=== PATIENT | female | born 1960 | race Caucasian/White ===

== ENCOUNTER 2019-02-14 21:00 | Emergency (ER) | payer MEDICAID ==
[~2019-02-14] VITALS: Ht 167.6 cm; Wt 74.4 kg
--- NOTE | 2019-02-14 21:17 | NUR ---
PT BIB [facility] WITH A C/O ABD PAIN X 2 MONTHS AND CONSTIPATION X 7 DAYS. LAST BM WAS A WEEK AGO. PT WAS TRIAGED AND TAKEN TO ROOM #14.
--- NOTE | 2019-02-14 21:20 | NUR ---
PT REC'D WARM BLANKETS. PT'S FAMILY MEMBER IS AT THE BEDSIDE.
[2019-02-14] MEDS ORDERED: IV NS 0.9% 1,000 ML BAG IV ONE (22:00)
[2019-02-14] MEDS ORDERED: MORPHINE SULFATE INJ 2 MG/ML DISP.SYRIN IV ONE (22:00)
[2019-02-14] MEDS ORDERED: ONDANSETRON HCL/PF 4 MG/2 ML VIAL IVP ONE (22:00)
[2019-02-14] MEDS ORDERED: MORPHINE SULFATE INJ 4 MG/ML DISP.SYRIN ONE (22:03)
[2019-02-14] MEDS ORDERED: ONDANSETRON HCL/PF 4 MG/2 ML VIAL ONE (22:03)
[2019-02-14 22:13] LABS: BASOPHILS # (AUTO) 0.1 /CMM (0.0-0.2); BASOPHILS % (AUTO) 0.8 % (0.0-2.0); EOSINOPHILS % (AUTO) 1.1 % (0.0-6.0); HEMATOCRIT 38 % (33-45); LYMPHOCYTES # (AUTO) 1.5 /CMM (0.8-4.8); LYMPHOCYTES % (AUTO) 15.8 % (20.0-44.0); MEAN CORPUSCULAR HGB CONC 34 g/dl (31.0-36.0); MEAN CORPUSCULAR VOLUME 86 fL (82-100); MONOCYTES % (AUTO) 10.5 % (2.0-12.0); NEUTROPHILS % (AUTO) 71.8 % (43.0-81.0); PLATELET COUNT (AUTO) 375 /CMM (150-450); RED BLOOD CELL COUNT(AUTO) 4.47 MIL/uL (4.0-5.2); WHITE BLOOD COUNT (AUTO) 9.7 K/uL (4.3-11.0)
--- NOTE | 2019-02-14 22:13 | NUR ---
PT STATED THAT SHE WAS ALLERGIC TO IV CONTRAST.
--- NOTE | 2019-02-14 22:15 | NUR ---
PEDRO LUIS, GIFT CONSULTANT, NOTIFIED RE: PT'S CONTRAST ALLERGY.
--- NOTE | 2019-02-14 22:19 | NUR ---
PT REFUSED ZOFRAN. PER PT DOES NOT WORK FOR HER
--- NOTE | 2019-02-14 22:19 | NUR ---
Shefali de souza in ED - 02/14/19 at 2219 by BRENDAN PT BETH GALEAS. PT STATED "IT DOESN'T WORK ON ME".
[2019-02-14 22:20] LABS: CALCIUM, SERUM 9.3 mg/dL (8.5-10.1); CREATININE 0.9 mg/dL (0.6-1.3)
--- NOTE | 2019-02-14 22:24 | NUR ---
PT LEFT FOR CT VIA RNEY
[2019-02-14 22:26] LABS: ALBUMIN 3.5 g/dL (3.4-5.0); BILIRUBIN,DIRECT 0.1 mg/dL (0.0-0.2); BILIRUBIN,TOTAL 0.5 mg/dL (0.2-1.0); TOTAL PROTEIN, SERUM 7.7 g/dL (6.4-8.2)
--- NOTE | 2019-02-14 22:33 | NUR ---
PT RETURNED FROM CT.
[2019-02-14] MEDS ORDERED: oxyCODONE/APAP (5/325 MG) 1 UDTAB TABLET ONE (23:22)
[2019-02-14] MEDS ORDERED: oxyCODONE/APAP (5/325 MG) 1 UDTAB TABLET PO ONE (23:30)
--- NOTE | 2019-02-14 23:34 | NUR ---
IV removed. Catheter intact and site benign. Pressure and 4x4 applied to site. No bleeding noted. FPatient discharged to home in stable condition. Written and verbal after care instructions given. Patient verbalizes understanding of instruction AND RX. PT'S SON IS DRIVING PT HOME. COPY OF ALL LABS AND CT FINDINGS GIVEN TO THE PT. PT TO F/U WITH [facility] IN THE MORNING.
[2019-02-14 23:36] VITALS: BP 128/75
== END 2019-02-14 23:37 | disposition home or self-care (01) ==
LOC: ER 21:18
DX: C53.9 Malignant neoplasm of cervix uteri, unspecified (principal); Z90.89 Acquired absence of other organs
CPT/HCPCS: 74176; 80048; 80076; 83690; 85025; 85730; 96374; 99284; J2270; J7030; J2405

== ENCOUNTER 2019-05-26 17:20 | Inpatient (IN) | payer OTHER ==
[~2019-05-26] VITALS: Ht 167.6 cm; Wt 53.5 kg
[2019-05-26] MEDS ORDERED: MORPHINE SULFATE INJ 2 MG/ML DISP.SYRIN IV PRN (19:00)
[2019-05-26] MEDS ORDERED: MAG HYDROX/AL HYDROX/SIMETH 30 ML UDC PO PRN (19:00)
[2019-05-26] MEDS ORDERED: Z GUARD REMEDY 2 OZ OINT TP PRN (19:00)
[2019-05-26] MEDS ORDERED: ACETAMINOPHEN 325 MG TABLET PO PRN (19:00)
[2019-05-26] MEDS ORDERED: ZOLPIDEM TARTRATE 5 MG TABLET PO PRN (19:00)
[2019-05-26] MEDS ORDERED: MAGNESIUM HYDROXIDE 30 ML UDC PO PRN (19:00)
[2019-05-26 20:04] VITALS: BP 143/66
--- NOTE | 2019-05-26 20:10 | NUR ---
ADMISSION NOTES: RECEIVED REPORT FROM MOLLY SUAREZ. PT WAS BROUGHT TO THE UNIT VIA [facility], FROM [facility]. PT COMPLAINING OF UNABLE TO EAT FOR COUPLE OF DAYS, N/V MORE THAN 3DAYS, INTRACTABLE PAIN. PT STATED SHE DOESN'T HAVE ANY N/V AT THIS TIME, ONLY LOWER BACK PAIN AND ABDOMINAL PAIN, BUT REFUSING MORPHINE. ORIENTED PT TO UNIT POLICY AND HOURLY ROUNDING. USE OF CALL LIGHT SYSTEM. BED SIDE COMMODE AVAILABLE AT BED SIDE. PT REFUSING FOR HELP IN USING COMMODE, BED ALARM SECURED, AND EDUCATION PROVIDED TO PT. TELE MONITORING ON SINUS RHYTHM HR 90. IV ACCESS PATENT AND FLUSHING WELL, ON HL. VS TAKEN AND RECORDED. INVENTORY OF BELONGINGS COMPLETED BY JHON DUMONT. SAFETY PRECAUTIONS FOR FALL INITIATED, CALL LIGHT IN REACH, WILL CONTINUE TO MONITOR.
[2019-05-26 20:30] VITALS: BP 143/66
--- NOTE | 2019-05-26 20:30 | NUR ---
RN NOTES: SKIN ASSESSMENT PERFORMED, NO SKIN ISSUES NOTED, WITNESSED BY JHON DUMONT.PT ABLE TO TURN AND REPOSITION ON HER OWN. PT STATED SHE DOES NOT WANT ANYTHING BUT PAIN MEDS ONLY. PT REFUSING SCD, DESPITE PROVIDING EDUCATION TO PT, RISK AND BENEFITS EXPLAINED.
--- NOTE | 2019-05-26 20:45 | NUR ---
RN NOTES: SAW THE NOTES OF MD, PER MD BED REST, INFORMED PT THAT IN CASE SHE WILL USE BATHROOM , CALL FOR HELP, AND WE WILL PROVIDE BED WATSON FOR HER. PT REFUSED, STATED SHE'S NOT COMFORTABLE VOIDING WHILE IN BED, EDUCATION PROVIDED TO PT.
--- NOTE | 2019-05-26 21:00 | NUR ---
RN NOTES: ADMISSION INTERVIEW COMPLETED, INCLUDING PT'S HOME MEDS, PT UNABLE TO RECALL MOST OF THE DOSAGE/INFORMATION. CLAIMING SHE ALWAYS TAKE DILAUDID AND METHADONE. ALL HOME MED LIST ENCODE/INPUT IN THE COMPUTER. WILL MADE INVESTIGATIONS CHIEF MD AWARE.
--- NOTE | 2019-05-26 21:20 | NUR ---
rn notes: pt refusing ivfluid stated she received ivf in [facility]. pt insisted no ivf tonight. education provided to patient
--- NOTE | 2019-05-26 21:46 | NUR ---
prn morphine: pt c/o excruciating pain 10/10 on lower back and abdominal area, requesting for pain medication. she stated she couldn't wait for dilaudid so she would rather get the morphine now. an/sqq [id number] sonar system journeyman made aware of the situation, witness for medication and pt choice of pain meds. prn morphine 4mg ivp administered to pt at this time, will continue to monitor and reassess pt.
[2019-05-26 21:53] LABS: APPEARANCE,URINE Clear (CLEAR); BILIRUBIN,URINE Negative (NEGATIVE); BLOOD, URINE Negative Ery/uL (NEGATIVE); COLOR,URINE Yellow (YELLOW); KETONES,URINE Trace (NEGATIVE); LEUKOCYTE ESTERASE ,URINE Negative (NEGATIVE); NITRITE, URINE Negative (NEGATIVE); PH,URINE 7.5 (5.0-8.0); PROTEIN,URINE Negative (NEGATIVE); UGLUCOSE Negative (NEGATIVE)
[2019-05-26 22:12] LABS: BACTERIA,URINE Few /HPF (None Seen); RBC,URINE 0-2 /HPF (0-2); SQUAMOUS EPITHELIAL CELL,UR Few /HPF (None Seen); WBC,URINE 0-2 /HPF (0-3)
[2019-05-26] MEDS ORDERED: RIVA10TA PO (22:16)
[2019-05-26] MEDS ORDERED: POLY17PO4 PO (22:16)
[2019-05-26] MEDS ORDERED: VENL225T PO (22:16)
[2019-05-26] MEDS ORDERED: METH5TAB2 PO (22:16)
[2019-05-26] MEDS ORDERED: NALO4SPR NS (22:16)
[2019-05-26] MEDS ORDERED: PROC10TA13 PO (22:16)
[2019-05-26] MEDS ORDERED: MULT-213 PO (22:16)
[2019-05-26] MEDS ORDERED: GABA-536 PO (22:16)
[2019-05-26] MEDS ORDERED: METO-295 PO (22:16)
[2019-05-26] MEDS ORDERED: ONDA8TAB6 PO (22:16)
[2019-05-26] MEDS: IV NS 0.9% 1,000 ML IV PRN (22:43)
--- NOTE | 2019-05-26 22:44 | NUR ---
rn notes: pt requesting for dilaudid for her pain medication, contacted epic , per dr ortez, t/o dc morphine and switch to dilaudid 1 mg ivp prn q3hrs for severe pain. read back, verified and carried out.
--- NOTE | 2019-05-26 22:48 | NUR ---
RN NOTES: DR WEIR AWARE OF PT'S ADMISSION/ARRIVAL. NO ORDERS RECEIVED.
--- NOTE | 2019-05-26 23:00 | NUR ---
RN NOTES: DEAN MD CURRENTLY IN THE UNIT, MADE AWARE OF PT'S VTE SCORE, HAS ORDER FOR LOVENOX, BUT PENDING VERIFICATION, PT'S LAB SCHED TO BE DRAWN IN AM 05/27/19 AT 0500AM, PER MD THAT'S OKAY, WILL WAIT FOR AM LABS.
[2019-05-26] MEDS: HYDROMORPHONE 1 MG/1 ML DISP.SYRIN IV PRN (23:41)
--- NOTE | 2019-05-26 23:41 | NUR ---
prn dilaudid: pt c/o 06/08 lower back and abdominal pain requesting for medications, prn dilaudid 1mg ivp administered to pt at this time. will continue to monitor and reassess pt.
[2019-05-27] VITALS: BP 130/68
--- NOTE | 2019-05-27 01:37 | NUR ---
RN NOTES: HEARD BED ALARM, FOUND PT USING THE COMMODE, INFORMED PT TO CALL FOR HELP, PT REFUSED, AND STATED TO GO AWAY, DOES NOT NEED HELP IN USING COMMODE. EDUCATION PROVIDED TO PT, RISK FOR FALL.
--- NOTE | 2019-05-27 02:12 | NUR ---
RN NOTES: MRSA SWAB COLLECTED, SENT TO LAB
[2019-05-27] MEDS: HYDROMORPHONE 1 MG/1 ML DISP.SYRIN IV PRN ×5 (02:58→23:37)
--- NOTE | 2019-05-27 02:59 | NUR ---
prn dilaudid: pt c/o 06/08 generalized pain, prn dilaudid 1 mg ivp administered to pt at this time, will continue to monitor and reassess pt.
[2019-05-27] MEDS: IV NS 0.9% 1,000 ML IV PRN (03:08)
--- NOTE | 2019-05-27 03:13 | NUR ---
rn notes: pt finally agree for iv hydration
[2019-05-27 04:00] VITALS: BP 131/70
--- NOTE | 2019-05-27 06:18 | NUR ---
prn dilaudid: pt c/o 06/08 generalized pain, requesting for pain medication, prn dilaudid 1 mg ivp administered to pt at this time, will continue to monitor and reassess pt.
--- NOTE | 2019-05-27 06:51 | NUR ---
rn closing notes: pt in bed, awake, last pain meds administered at 0620am. iv access remains patent and flushing well, infusing with ns at 75ml/hr. no episode of n/v noted throughout the shift. remains on tele monitoring, sinus rhythm hr 70. remains to refused scd, despite educating regarding potential risk and benefits, prevention of blood clot. bed side commode available. awaiting to reconcile meds. vs remains stable, needs attended. safety precautions for fall remains engaged, call light in reach, will endorse to day rn for continuity of care.
--- NOTE | 2019-05-27 07:30 | NUR ---
WEATHER TEACHER NOTES PT IN BED, AWAKE, ALERT AND VERBALLY RESPONSIVE, NOT IN DISTRESS, NO COMPLAINT AT THIS TIME, IV FLUIDS INFUSING WELL, REMINDED PT TO CALL FOR ASSISTANCE, VERBALIZED UNDERSTANDING, KEPT WARM AND COMFORTABLE IN BED.
[2019-05-27 07:43] LABS: BASOPHILS % (AUTO) 0.6 % (0.0-2.0); HEMATOCRIT 29 % (33-45); HEMOGLOBIN 9.6 g/dL (11.5-14.8); LYMPHOCYTES # (AUTO) 0.9 /CMM (0.8-4.8); LYMPHOCYTES % (AUTO) 11.7 % (20.0-44.0); MEAN CORPUSCULAR HGB CONC 33 g/dl (31.0-36.0); MEAN CORPUSCULAR VOLUME 73 fL (82-100); MONOCYTES % (AUTO) 12.5 % (2.0-12.0); NEUTROPHILS # (AUTO) 5.9 /CMM (1.8-8.9); NEUTROPHILS % (AUTO) 74.2 % (43.0-81.0); PLATELET COUNT (AUTO) 513 /CMM (150-450); RED BLOOD CELL COUNT(AUTO) 4.02 MIL/uL (4.0-5.2)
[2019-05-27 07:56] LABS: CALCIUM, SERUM 8.9 mg/dL (8.5-10.1); CREATININE 0.7 mg/dL (0.6-1.3); MAGNESIUM 2.1 mg/dL (1.8-2.4); PHOSPHORUS 3.3 mg/dL (2.5-4.9); POTASSIUM 3.8 mmol/L (3.5-5.1)
[2019-05-27 08:00] VITALS: BP 133/66
[2019-05-27] MEDS ORDERED: PANTOPRAZOLE 40 MG VIAL IV SCH (09:00)
[2019-05-27] MEDS ORDERED: ENOXAPARIN SODIUM 30 MG/0.3 ML DISP.SYRIN SQ SCH (09:00)
[2019-05-27] MEDS ORDERED: ENOXAPARIN SODIUM 40 MG/0.4 ML DISP.SYRIN SQ SCH (09:00)
[2019-05-27] MEDS: HYDROCODONE/APAP 5/325MG 1 EACH TABLET PO PRN ×2 (11:47→22:34)
--- NOTE | 2019-05-27 12:16 | NUR ---
RN MS NOTES PT IN BED, RESTING, PAIN MEDS GIVEN FOR PAIN MANAGEMENT, CALL LIGHT WITHIN REACH, NOT IN DISTRESS, SEEN BY DR. WEIR, PLAN OF CARE DISCUSSED WITH PT, VERBALIZED UNDERSTANDING, PT'S IV SITE INFILTRATED, PT HARDSTICK, MIDLINE ORDER GIVEN BY DR. WEIR, PT INFORMED.
[2019-05-27 16:00] VITALS: BP 133/71
[2019-05-27] MEDS: ONDANSETRON HCL/PF 4 MG/2 ML VIAL IVP PRN (17:28)
--- NOTE | 2019-05-27 17:46 | NUR ---
RN MS NOTES PT SEEN AND EXAMINED BY DR. WEIR, PLAN OF CARE DISCUSSED WITH PT, VERBALIZED UNDERSTANDING, PAIN MEDS GIVEN ORDERED, ZOFRAN GIVEN ORDERED, NEEDS ATTENDED, IV FLUIDS INFUSING WELL, CALL LIGHT WITHIN REACH.
--- NOTE | 2019-05-27 18:16 | NUR ---
RN MS NOTES PT IN BED, AWAKE, ALERT AND ORIENTED, SITTING IN BED, EATING DINNER, ENCOURAGED INCREASED ORAL INTAKE, STATED THAT HER PAIN AND NAUSEA IS BETTER, CALL LIGHT WITHIN REACH, ALL NEEDS ATTENDED.
[2019-05-27] MEDS ORDERED: ALPRAZOLAM 0.25 MG TABLET PO PRN (18:30)
[2019-05-27] MEDS: RIVAROXABAN 10 MG TABLET PO SCH (18:54)
--- NOTE | 2019-05-27 19:15 | NUR ---
MS RN OPENING NOTES Patient received in bed with head of bed elevated. Breathing even and unlabored. Not in any distress. Offered to hook back patient to IV fluids but patient refused. Stated to do it later as she might go again to the commode. Encouraged to call for assistance. Safety measures in place; call light within reach, bed in low, locked position. Will continue to monitor accordingly
--- NOTE | 2019-05-27 19:40 | NUR ---
RN NOTES Midliner Ted came to put in a midline. Patient refused for now as she has a working IV line on the R) wrist.
[2019-05-27 20:00] VITALS: BP 126/68
--- NOTE | 2019-05-27 20:24 | NUR ---
RN NOTES PATIENT C/O PAIN IN ABDOMEN AND BACK, 06/08. V/S WNL. PRN DILAUDID 1MG GIVEN ORDERED. WILL CONTINUE TO MONITOR
--- NOTE | 2019-05-27 21:00 | NUR ---
RN NOTES Patient agreed to be hooked back to IV fluids
[2019-05-27] MEDS: VENLAFAXINE XR 37.5 MG CAP.SR.24H PO SCH (21:30)
[2019-05-27] MEDS: GABAPENTIN 400 MG CAPSULE PO SCH (21:30)
--- NOTE | 2019-05-27 21:30 | NUR ---
RN NOTES Patient refusing night medications: gabapentin and venflaxine. Explained the uses and benefits but still refusing. As per patient, "I don't need it right now. I don't want it."
--- NOTE | 2019-05-27 23:38 | NUR ---
RN NOTES Patient stated [employer] is not working. Still c/o 05/09 abdominal and back pain, requesting for dilaudid, prn dilaudid 1 mg IVP administered as ordered. Will continue to monitor
[2019-05-28] MEDS: HYDROMORPHONE 1 MG/1 ML DISP.SYRIN IV PRN ×7 (02:55→21:00)
--- NOTE | 2019-05-28 02:56 | NUR ---
RN NOTES Patient c/o 9/10 abdominal and lower back pain, requesting for pain medication, prn dilaudid 1 mg IVP administered as ordered. Will continue to monitor
[2019-05-28] MEDS: IV NS 0.9% 1,000 ML IV PRN (05:31)
--- NOTE | 2019-05-28 05:56 | NUR ---
RN NOTES Patient c/o 9/10 abdominal and lower back pain, requesting for pain medication, prn dilaudid 1 mg IVP administered as ordered. Will continue to monitor
--- NOTE | 2019-05-28 06:49 | NUR ---
MS RN CLOSING NOTES Patient resting in bed, alert, oriented x 3. Breathing even and unlabored. Not in any distress. Peripheral IV infusing at 75mL/hr. No complaints at this time. Safety measures in place, call light within reach, bed in lowest, locked position. Will endorse BETSEY to oncoming RN
--- NOTE | 2019-05-28 07:30 | NUR ---
RN MS NOTES PT IN BED, AWAKE, ALERT AND ORIENTED, WITH COMPLAINT OF GENERALIZED PAIN, RESPIRATIONS NORMAL, IV FLUIDS INFUSING WELL, CALL LIGHT WITHIN REACH, KEPT WARM AND COMFORTABLE, PAIN MEDS GIVEN FOR PAIN MANAGEMENT.
[2019-05-28 07:31] LABS: BASOPHILS % (AUTO) 0.3 % (0.0-2.0); HEMATOCRIT 31 % (33-45); LYMPHOCYTES % (AUTO) 10.3 % (20.0-44.0); MEAN CORPUSCULAR HGB CONC 32 g/dl (31.0-36.0); MEAN CORPUSCULAR VOLUME 74 fL (82-100); MONOCYTES # (AUTO) 0.9 /CMM (0.1-1.30); MONOCYTES % (AUTO) 9.6 % (2.0-12.0); NEUTROPHILS # (AUTO) 7.7 /CMM (1.8-8.9); NEUTROPHILS % (AUTO) 78.8 % (43.0-81.0); PLATELET COUNT (AUTO) 588 /CMM (150-450); RED BLOOD CELL COUNT(AUTO) 4.22 MIL/uL (4.0-5.2); WHITE BLOOD COUNT (AUTO) 9.8 K/uL (4.3-11.0)
[2019-05-28 07:40] LABS: THYROID STIMULATING HORMONE 3.81 uIU/mL (0.358-3.74)
[2019-05-28 07:45] LABS: CREATININE 0.7 mg/dL (0.6-1.3); MAGNESIUM 2.1 mg/dL (1.8-2.4); PHOSPHORUS 3.3 mg/dL (2.5-4.9); POTASSIUM 3.4 mmol/L (3.5-5.1)
[2019-05-28] MEDS: PANTOPRAZOLE 40 MG TABLET.DR PO SCH (07:52)
[2019-05-28] MEDS: ONDANSETRON HCL/PF 4 MG/2 ML VIAL IVP PRN ×2 (07:53→18:07)
[2019-05-28 08:00] VITALS: BP 115/64
[2019-05-28] MEDS: METHADONE HCL 10 MG TABLET PO SCH ×2 (09:00→13:22)
[2019-05-28] MEDS ORDERED: POTASSIUM CHLORIDE 20 MEQ TAB.PRT.SR PO SCH (10:00)
[2019-05-28] MEDS: HYDROCODONE/APAP 5/325MG 1 EACH TABLET PO PRN (10:30)
--- NOTE | 2019-05-28 12:50 | NUR ---
RN MS NOTES PT IN BED, RESTING, PAIN MEDICATION GIVEN FOR PAIN MANAGEMENT, SEEN AND EXAMINED BY DR. WEIR, PLAN OF CARE DISCUSSED WITH PT, VERBALIZED UNDERSTANDING, PT WITH EPISODES OF NON COMPLIANCE WITH MEDS, MD INFORMED.
[2019-05-28] MEDS: RIVAROXABAN 10 MG TABLET PO SCH (13:24)
[2019-05-28 13:39] LABS: APPEARANCE,URINE Slightly Cloudy (CLEAR); BILIRUBIN,URINE Negative (NEGATIVE); BLOOD, URINE Trace-intact Ery/uL (NEGATIVE); COLOR,URINE Yellow (YELLOW); KETONES,URINE Negative (NEGATIVE); LEUKOCYTE ESTERASE ,URINE Moderate (NEGATIVE); NITRITE, URINE Positive (NEGATIVE); PROTEIN,URINE Negative (NEGATIVE); UGLUCOSE Negative (NEGATIVE)
[2019-05-28 13:58] LABS: BACTERIA,URINE 3+ /HPF (None Seen); SQUAMOUS EPITHELIAL CELL,UR Few /HPF (None Seen)
--- NOTE | 2019-05-28 15:26 | NUR ---
RN MS NOTES PT STILL COMPLAINING OF GENERALIZED PAIN, PAIN MED NOT EFFECTIVE, DR. WEIR INFORMED, ORDERED TO INCREASE DILAUDID IVP TO 2 MG, NOTED AND CARRIED OUT, PT INFORMED, MD ALSO INFORMED OF PT'S LATEST URINALYSIS RESULT.
[2019-05-28 16:00] VITALS: BP 129/69
[2019-05-28] MEDS ORDERED: PHENAZOPYRIDINE HCL 200 MG TABLET PO PRN (16:00)
[2019-05-28] MEDS: CEFTRIAXONE 1 G in IV D5W 50 ML IV SCH (16:01)
[2019-05-28] MEDS: ENSURE CLEAR 237 ML LIQUID (MIX BERRY) PO SCH (18:12)
[2019-05-28 18:37] LABS: URINE SODIUM, RANDOM 69 mmol/l (40-220)
[2019-05-28 18:42] LABS: OSMOLALITY,URINE 478 mOS/kg (340-1090)
--- NOTE | 2019-05-28 18:50 | NUR ---
RN MS NOTES PT AWAKE, ALERT AND ORIENTED, SITTING IN HER CHAIR, PAIN MEDS GIVEN ORDERED, REASSESSED NEEDED, STATED THAT HER PAIN AND NAUSEA IS BETTER, NOT IN DISTRESS, ASSISTED WITH ADL'S, ENCOURAGED INCREASED ORAL INTAKE, CALL LIGHT WITHIN REACH, ALL NEEDS ATTENDED.
--- NOTE | 2019-05-28 19:30 | NUR ---
RECEIVED PATIENT IN BED AWAKE. AO X 3, ABLE TO MAKE NEEDS KNOWN. NO ACUTE DISTRESS NOTED. MONITORED FOR PAIN. IV SITE PATENT, INTACT; IVF INFUSING ORDERED. SAFETY REMINDERS GIVEN. ON LOW BED WITH BILATERAL UPPER SIDE RAILS UP. CALL [place]A WITHIN EASY REACH. WILL CONTINUE TO MONITOR.
[2019-05-28 20:00] VITALS: BP 117/67
[2019-05-28] MEDS: GABAPENTIN 400 MG CAPSULE PO SCH (22:00)
[2019-05-28] MEDS: VENLAFAXINE XR 37.5 MG CAP.SR.24H PO SCH (22:00)
--- NOTE | 2019-05-28 22:30 | NUR ---
EXPLAINED TO PATIENT THAT EFFEXOR AND NEURONTIN ARE ONLY SCHEDULED HS AND THAT SHE DID NOT RECEIVE THEM HIS MORNING. PATIENT WAS INFORMED WHICH MEDS SHE RECEIVED SO FAR TODAY. PATIENT STILL STRONGLY REFUSED EFFEXOR AND NEURONTIN, THINKING THAT SHE HAS BEEN GIVEN THE TWO MEDS IN THE MORNING. EFFEXOR AND NEURONTIN HELD. WILL CONTINUE TO MONITOR.
[2019-05-29] MEDS: HYDROMORPHONE 1 MG/1 ML DISP.SYRIN IV PRN ×7 (03:05→19:43)
[2019-05-29] MEDS: IV NS 0.9% 1,000 ML IV PRN ×2 (04:32→17:54)
--- NOTE | 2019-05-29 06:30 | NUR ---
PATIENT IN BED WITH EYES CLOSED. MONITORED FOR PAIN. IVF INFUSING ORDERED. NEEDS ATTENDED. SAFETY PRECAUTIONS AND COMFORT MEASURES IN PLACE. WILL GIVE REPORT TO DAY SHIFT FOR CONTINUITY OF CARE.
[2019-05-29] MEDS: PANTOPRAZOLE 40 MG TABLET.DR PO SCH (08:03)
[2019-05-29] MEDS: ONDANSETRON HCL/PF 4 MG/2 ML VIAL IVP PRN ×2 (08:03→18:17)
[2019-05-29 08:34] VITALS: BP 140/71
[2019-05-29 08:36] LABS: BASOPHILS % (AUTO) 0.4 % (0.0-2.0); EOSINOPHILS % (AUTO) 0.5 % (0.0-6.0); HEMATOCRIT 33 % (33-45); HEMOGLOBIN 10.7 g/dL (11.5-14.8); LYMPHOCYTES # (AUTO) 0.9 /CMM (0.8-4.8); MEAN CORPUSCULAR HGB CONC 32 g/dl (31.0-36.0); MEAN CORPUSCULAR VOLUME 74 fL (82-100); MONOCYTES # (AUTO) 0.9 /CMM (0.1-1.30); MONOCYTES % (AUTO) 9.2 % (2.0-12.0); NEUTROPHILS # (AUTO) 7.5 /CMM (1.8-8.9); NEUTROPHILS % (AUTO) 79.9 % (43.0-81.0); PLATELET COUNT (AUTO) 449 /CMM (150-450); RED BLOOD CELL COUNT(AUTO) 4.48 MIL/uL (4.0-5.2); WHITE BLOOD COUNT (AUTO) 9.4 K/uL (4.3-11.0)
[2019-05-29 08:39] LABS: CREATININE 0.6 mg/dL (0.6-1.3); POTASSIUM 3.9 mmol/L (3.5-5.1)
[2019-05-29 08:43] LABS: PHOSPHORUS 3.2 mg/dL (2.5-4.9)
[2019-05-29] MEDS: ENSURE CLEAR 237 ML LIQUID (MIX BERRY) PO SCH ×3 (09:00→17:00)
[2019-05-29] MEDS: METHADONE HCL 10 MG TABLET PO SCH ×2 (09:58→18:22)
[2019-05-29] MEDS: RIVAROXABAN 10 MG TABLET PO SCH (12:57)
[2019-05-29] MEDS: HYDROCODONE/APAP 5/325MG 1 EACH TABLET PO PRN (14:48)
[2019-05-29] MEDS: CEFTRIAXONE 1 G in IV D5W 50 ML IV SCH (16:04)
[2019-05-29 16:15] VITALS: BP 119/67
--- NOTE | 2019-05-29 19:01 | NUR ---
MS/RN NOTE THE PATIENT ALERT AND ORIENTED X3. COMPLAINS GENERALIZED BODY PAIN 4/10 BUT DOES NOT WANT PAIN MEDICATION AT THIS TIME. IN ROOM AIR AND SATURATION IS AT 98%. DENIES SOB. RESPIRATION REGULAR AND UNLABORED. RIGHT WRIST G 20 PATENT AND NS INFUSING AT 75ML/HR AND NO S/S INFILTRATION NOTED. BED LOW AND LOCKED. SIDE RAILS UP X3. CALL LIGHT WITHIN REACH. WILL ENDORSE TO [employer]MONS SERVER.
--- NOTE | 2019-05-29 19:25 | NUR ---
CHANGE OF SHIFT REPORT Patient in bed, A/O x4. Tolerating RA, denies SOB. IVF infusing. Abdomen feels tender, back pain, irritable with pain. Educate on pain scale and pain management, indication and possible side effect of Opiods medication, verbalized understanding. Denies nausea, no vomiting. Fall precaution maintained. Addendum: 05/30/19 at 0013 by TONY ROBERSON RN ERROR ENTERED ON 05/28/19 AT 1925 [employer]/Tele Nursing Flowsheet, PLEASE DISREGARD ASSESSMENT.
[2019-05-29 20:00] VITALS: BP 118/62
[2019-05-29] MEDS: VENLAFAXINE XR 37.5 MG CAP.SR.24H PO SCH (21:22)
[2019-05-29] MEDS: GABAPENTIN 400 MG CAPSULE PO SCH (21:22)
[2019-05-30] MEDS: HYDROMORPHONE 1 MG/1 ML DISP.SYRIN IV PRN ×6 (01:29→22:34)
[2019-05-30] MEDS: ONDANSETRON HCL/PF 4 MG/2 ML VIAL IVP PRN ×2 (05:20→18:05)
--- NOTE | 2019-05-30 06:27 | NUR ---
END OF SHIFT REPORT Patient in bed, stable oxygen saturation on RA. Feels weak and loss of appetite. PT to follow. Abdominal/lower back pain controlled with PRN Dilaudid. Methadone as schedule for pain management. IVF infusing, IV abx as scheduled, no fever. Nausea resolved with PRN Zofran. Hourly rounds, maintained safety.
[2019-05-30 08:00] VITALS: BP 109/62
[2019-05-30] MEDS: ENSURE CLEAR 237 ML LIQUID (MIX BERRY) PO SCH ×3 (09:00→16:22)
[2019-05-30] MEDS: PANTOPRAZOLE 40 MG TABLET.DR PO SCH (09:14)
[2019-05-30] MEDS: METHADONE HCL 10 MG TABLET PO SCH ×2 (10:03→16:22)
[2019-05-30] MEDS: oxyCODONE IR immediate release 5 MG PO PRN ×2 (12:07→20:18)
[2019-05-30] MEDS: IV NS 0.9% 1,000 ML IV PRN (12:12)
[2019-05-30] MEDS: RIVAROXABAN 10 MG TABLET PO SCH (12:33)
[2019-05-30 15:57] VITALS: BP 111/56
[2019-05-30] MEDS: CEFTRIAXONE 1 G in IV D5W 50 ML IV SCH (16:13)
--- NOTE | 2019-05-30 18:52 | NUR ---
MS/RN NOTE THE PATIENT ALERT AND ORIENTED X4. IN ROOM AIR AND SATURATION IS AT 97%. DENIES SOB. COMPLAINS OF ABDOMINAL PAIN 3/10 AND DOES NOT WANT PAIN MEDICATION AT THIS TIME. RIGHT WRIST G 20 PATENT AND NS INFUSING AT 75ML/HR AND NO S/S INFILTRATION. BED LOW AND LOCKED. SIDE RAILS UP X3. CALL LIGHT WITHIN REACH. WILL ENDORSE TO CODING AUDITOR.
--- NOTE | 2019-05-30 19:30 | NUR ---
MS/RN NOTES RECEIVED PT. LYING IN BED RESTING. PT. IS EASILY AROUSABLE TO NAME. AWAKE, ALERT AND ORIENTED X4. BREATHING EVEN AND UNLABORED ON ROOM AIR. NO SOB, RESPIRATORY DISTRESS OR COMPLAINTS OF PAIN NOTED AT THIS TIME. PT. WITH RIGHT WRIST 20 GAUGE PERIPHERAL IV PRESENT, PATENT AND INTACT ADMINISTERING TO PT. NS @ 75 ML/HR. BED LOCKED AND IN LOWEST POSITION, SIDE RAILS UP X2, CALL LIGHT WITHIN REACH, WILL CONTINUE TO MONITOR.
[2019-05-30 20:00] VITALS: BP 115/72
[2019-05-30] MEDS: GABAPENTIN 400 MG CAPSULE PO SCH (22:34)
[2019-05-30] MEDS: VENLAFAXINE XR 37.5 MG CAP.SR.24H PO SCH (22:34)
[2019-05-31] MEDS: HYDROMORPHONE 1 MG/1 ML DISP.SYRIN IV PRN ×8 (02:04→23:07)
--- NOTE | 2019-05-31 02:04 | NUR ---
MS/RN NOTES WHEN TRYING TO GIVE PT. PAIN MEDICINE IV NOTED TO BE INFILTRATED WHEN FLUSHED WITH NS. MEDICATION NOT ADMINISTERED TO PATIENT AT THIS TIME, TRIED TO INSERT NEW IV ACCESS AND WAS UNABLE. WILL CALL FOR ER NURSE TO ATTEMPT IV INSERTION. WILL CONTINUE TO MONITOR.
[2019-05-31] MEDS: oxyCODONE IR immediate release 5 MG PO PRN ×5 (03:06→22:10)
--- NOTE | 2019-05-31 03:06 | NUR ---
MS/RN NOTES ER NURSE PRESENT AT BEDSIDE ATTEMPTING TO INSERT NEW IV ACCESS. PT. REQUESTED PRN OXY IR 5MG. ADMINISTERED PAIN MEDICATION TO PT. ORDERED. WILL CONTINUE TO MONITOR.
--- NOTE | 2019-05-31 03:35 | NUR ---
MS/RN NOTES ER NURSE ATTEMPTED TO INSERT NEW IV ACCESS AND WAS UNABLE. ER NURSE STATED THEY WOULD SEND ANOTHER ER NURSE TO ATTEMPT TO INSERT NEW IV ACCESS. WILL CONTINUE TO MONITOR.
--- NOTE | 2019-05-31 04:10 | NUR ---
MS/RN NOTES ER UNABLE TO SEND SOMEONE UP AT THIS TIME, PT. COMPLAINING OF SEVERE ABDOMINAL AND BACK PAIN. ADMINISTERED TO PT. PRN OXY IR 10MG ORDERED. WILL CALL ICU TO SEND NURSE TO ATTEMPT IV INSERTION. WILL CONTINUE TO MONITOR.
--- NOTE | 2019-05-31 04:59 | NUR ---
MS/RN NOTES ICU NURSE INSERTED NEW IV ACCESS LEFT HAND 20 GAUGE. PT. COMPLAINING OF SEVERE ABDOMINAL AND BACK PAIN NOT RELIEVED BY ORAL PAIN MEDICATION. ADMINISTERED TO PT. PRN DILAUDID 2MG. PT. CURRENT BP 120/69 HR 92. WILL CONTINUE TO MONITOR.
--- NOTE | 2019-05-31 06:19 | NUR ---
MS/RN NOTES PT. IS LYING IN BED RESTING. BREATHING EVEN AND UNLABORED ON ROOM AIR. NO SOB, RESPIRATORY DISTRESS OR COMPLAINTS OF PAIN NOTED AT THIS TIME. PT. WITH LEFT HAND 20 GAUGE PERIPHERAL IV PRESENT, PATENT AND INTACT ADMINISTERING TO PT. NS @ 75 ML/HR. ALL PT. NEEDS MET. BED LOCKED AND IN LOWEST POSITION, SIDE RAILS UP X2, CALL LIGHT WITHIN REACH, WILL ENDORSE TO DAYSHIFT NURSE FOR CONTINUITY OF CARE.
[2019-05-31] MEDS: ONDANSETRON HCL/PF 4 MG/2 ML VIAL IVP PRN ×3 (06:53→18:53)
[2019-05-31 07:06] LABS: BASOPHILS % (AUTO) 0.4 % (0.0-2.0); EOSINOPHILS % (AUTO) 0.8 % (0.0-6.0); HEMATOCRIT 29 % (33-45); HEMOGLOBIN 9.2 g/dL (11.5-14.8); LYMPHOCYTES # (AUTO) 0.9 /CMM (0.8-4.8); LYMPHOCYTES % (AUTO) 9.9 % (20.0-44.0); MEAN CORPUSCULAR HGB CONC 32 g/dl (31.0-36.0); MEAN CORPUSCULAR VOLUME 73 fL (82-100); MONOCYTES % (AUTO) 11.7 % (2.0-12.0); NEUTROPHILS # (AUTO) 6.6 /CMM (1.8-8.9); NEUTROPHILS % (AUTO) 77.2 % (43.0-81.0); PLATELET COUNT (AUTO) 516 /CMM (150-450); RED BLOOD CELL COUNT(AUTO) 3.91 MIL/uL (4.0-5.2); WHITE BLOOD COUNT (AUTO) 8.6 K/uL (4.3-11.0)
[2019-05-31 07:35] LABS: CALCIUM, SERUM 8.7 mg/dL (8.5-10.1); CREATININE 0.6 mg/dL (0.6-1.3); MAGNESIUM 1.9 mg/dL (1.8-2.4); POTASSIUM 3.6 mmol/L (3.5-5.1)
--- NOTE | 2019-05-31 07:45 | NUR ---
MS RN OPENING NOTES RECEIVED PT LAYING IN BED WITH HOB SLIGHTLY ELEVATED. PT IS A/O X4, AFEBRILE. RESPIRATIONS ARE EVEN AND UNLABORED, NOT IN ANY ACUTE DISTRESS NOTED. PT C/O GENERALIZED PAIN 04/08, WILL MEDICATE ACCORDINGLY. DENIES ANY SOB, N/V AT THIS TIME. SAFETY MEASURES ARE IN PLACE. INSTRUCTED PT TO USE CALL LIGHT WHEN ASSISTANCE IS NEEDED, CALL LIGHT IS LEFT WITHIN REACH. WILL MONITOR THROUGHOUT SHIFT FOR CONTINUITY OF CARE.
[2019-05-31 08:00] VITALS: BP_SYST 114; BP_SYST 133; BP_DIAS 60; BP_DIAS 79
[2019-05-31] MEDS: PANTOPRAZOLE 40 MG TABLET.DR PO SCH (08:08)
[2019-05-31] MEDS: METHADONE HCL 10 MG TABLET PO SCH ×2 (08:09→17:42)
[2019-05-31] MEDS: ENSURE CLEAR 237 ML LIQUID (MIX BERRY) PO SCH ×3 (08:22→17:20)
[2019-05-31] MEDS ORDERED: NA PHOS,M-B/NA PHOS,DI-BA 1 EA ENEMA RC PRN (13:00)
[2019-05-31] MEDS ORDERED: POLYETHYLENE GLYCOL 3350 17 GM POWD.PACK PO PRN (13:00)
[2019-05-31] MEDS: RIVAROXABAN 10 MG TABLET PO SCH (13:05)
--- NOTE | 2019-05-31 13:53 | NUR ---
MS RN NOTES-- CALLED PHARMACY, SPOKE W/ RHONDA RE: AYDIN. PER PHARMACY, WILL BRING IT UP.
[2019-05-31 16:00] VITALS: BP 118/61
[2019-05-31] MEDS: IV NS 0.9% 1,000 ML IV PRN (16:07)
[2019-05-31] MEDS: CEFTRIAXONE 1 G in IV D5W 50 ML IV SCH (16:32)
[2019-05-31] MEDS: SOD FERRIC GLUC 125 MG in IV NS 0.9% 100 ML IV SCH (16:53)
--- NOTE | 2019-05-31 17:01 | NUR ---
MS RN NOTES-- MIDLINE INSERTED TO GINGER G18. PT TOLERATED WELL. DRESSING KEPT CLEAN AND DRY. OLD PERIPHERAL IV REMOVED AND APPLIED PRESSURE. WILL CONTINUE TO MONITOR.
--- NOTE | 2019-05-31 18:21 | NUR ---
MS RN CLOSING NOTES ALL DUE MEDS GIVEN, NEEDS MET AND RENDERED. PT IS A/O X4, AFEBRILE. RESPIRATIONS ARE EVEN AND UNLABORED, NOT IN ANY ACUTE DISTRESS NOTED. PT C/O OF CHRONIC PAIN AND HAS BEEN MEDICATED ACCORDINGLY ORDERED. DENIES ANY SOB, N/V AT THIS TIME. MIDLINE TO GINGER INTACT, NO INFILTRATION NOTED. DRESSING KEPT CLEAN AND DRY. SAFETY MEASURES ARE IN PLACE. REMINDED PT TO USE CALL LIGHT WHEN ASSISTANCE IS NEEDED, CALL LIGHT IS LEFT WITHIN REACH.
[2019-05-31 20:00] VITALS: BP 116/65
[2019-05-31] MEDS: VENLAFAXINE XR 37.5 MG CAP.SR.24H PO SCH (21:45)
[2019-05-31] MEDS: GABAPENTIN 400 MG CAPSULE PO SCH (21:45)
--- NOTE | 2019-06-01 | NUR ---
PATIENT ASLEEP, RESPIRATIONS EVEN. WILL CONTINUE TO MONITOR.
[2019-06-01] MEDS: HYDROMORPHONE 1 MG/1 ML DISP.SYRIN IV PRN ×8 (02:03→22:59)
--- NOTE | 2019-06-01 06:00 | NUR ---
PATIENT AWAKE. RESPIRATIONS EVEN. MONITORED FOR PAIN. DUE MEDS GIVEN WITH NO ASE NOTED. IVF INFUSING ORDERED. NEEDS ATTENDED. MUCH REASSURANCE GIVEN TO MAKE PATIENT FEEL MORE SECURE. SAFETY PRECAUTIONS AND COMFORT MEASURES IN PLACE. WILL GIVE REPORT TO DAY SHIFT FOR CONTINUITY OF CARE.
[2019-06-01 07:23] LABS: BASOPHILS % (AUTO) 0.4 % (0.0-2.0); EOSINOPHILS % (AUTO) 0.9 % (0.0-6.0); HEMATOCRIT 29 % (33-45); HEMOGLOBIN 9.3 g/dL (11.5-14.8); LYMPHOCYTES # (AUTO) 1.1 /CMM (0.8-4.8); MEAN CORPUSCULAR HGB CONC 32 g/dl (31.0-36.0); MEAN CORPUSCULAR VOLUME 72 fL (82-100); MONOCYTES # (AUTO) 1.2 /CMM (0.1-1.30); MONOCYTES % (AUTO) 12.6 % (2.0-12.0); NEUTROPHILS # (AUTO) 7.4 /CMM (1.8-8.9); NEUTROPHILS % (AUTO) 75.1 % (43.0-81.0); PLATELET COUNT (AUTO) 569 /CMM (150-450); RED BLOOD CELL COUNT(AUTO) 4.05 MIL/uL (4.0-5.2); WHITE BLOOD COUNT (AUTO) 9.8 K/uL (4.3-11.0)
[2019-06-01 07:37] LABS: CALCIUM, SERUM 8.5 mg/dL (8.5-10.1); CREATININE 0.6 mg/dL (0.6-1.3); MAGNESIUM 1.8 mg/dL (1.8-2.4); POTASSIUM 3.4 mmol/L (3.5-5.1)
--- NOTE | 2019-06-01 07:39 | NUR ---
MS RN OPENING NOTES RECEIVED PT LAYING IN BED WITH HOB SLIGHTLY ELEVATED. PT IS A/O X4, AFEBRILE. RESPIRATIONS ARE EVEN AND UNLABORED, NOT IN ANY ACUTE DISTRESS NOTED. PT C/O GENERALIZED PAIN 8/10, WILL MEDICATE ACCORDINGLY. DENIES ANY SOB, NOTED W/ N/V AND WILL GIVE ANTIEMETIC ORDERED. MIDLINE TO GINGER INTACT, NO INFILTRATION NOTED. DRESSING KEPT CLEAN AND DRY. SAFETY MEASURES ARE IN PLACE. INSTRUCTED PT TO USE CALL LIGHT WHEN ASSISTANCE IS NEEDED, CALL LIGHT IS LEFT WITHIN REACH. WILL MONITOR THROUGHOUT SHIFT FOR CONTINUITY OF CARE.
[2019-06-01 08:00] VITALS: BP 114/61
[2019-06-01] MEDS: PANTOPRAZOLE 40 MG TABLET.DR PO SCH (08:01)
[2019-06-01] MEDS: ONDANSETRON HCL/PF 4 MG/2 ML VIAL IVP PRN ×3 (08:01→20:07)
[2019-06-01] MEDS: ENSURE CLEAR 237 ML LIQUID (MIX BERRY) PO SCH ×3 (08:01→16:28)
[2019-06-01] MEDS: IV NS 0.9% 1,000 ML IV PRN ×2 (08:01→22:59)
[2019-06-01] MEDS: METHADONE HCL 10 MG TABLET PO SCH ×2 (08:02→16:28)
[2019-06-01] MEDS ORDERED: POTASSIUM CHLORIDE 20 MEQ TAB.PRT.SR PO SCH (10:00)
--- NOTE | 2019-06-01 10:30 | NUR ---
MS RN NOTES-- PT WAS SEEN AND EXAMINED BY JESSE CANAS.
[2019-06-01] MEDS: RIVAROXABAN 10 MG TABLET PO SCH (12:32)
--- NOTE | 2019-06-01 14:41 | NUR ---
MS RN NOTES-- PT ABLE TO MAKE NEEDS KNOWN. NEEDS MET AND RENDERED. PT DOES NOT APPEAR TO BE IN ANY APPARENT DISTRESS NOTED. WILL CONTINUE TO MONITOR.
[2019-06-01] MEDS: CEFTRIAXONE 1 G in IV D5W 50 ML IV SCH (15:00)
[2019-06-01 16:00] VITALS: BP 114/56
[2019-06-01] MEDS: SOD FERRIC GLUC 125 MG in IV NS 0.9% 100 ML IV SCH (16:25)
[2019-06-01 20:00] VITALS: BP 132/60
[2019-06-01] MEDS: VENLAFAXINE XR 37.5 MG CAP.SR.24H PO SCH (21:49)
[2019-06-01] MEDS: GABAPENTIN 400 MG CAPSULE PO SCH (21:49)
[2019-06-02] MEDS: ONDANSETRON HCL/PF 4 MG/2 ML VIAL IVP PRN ×3 (02:02→16:02)
[2019-06-02] MEDS: HYDROMORPHONE 1 MG/1 ML DISP.SYRIN IV PRN ×7 (02:02→21:12)
[2019-06-02 06:26] LABS: BASOPHILS % (AUTO) 0.4 % (0.0-2.0); EOSINOPHILS % (AUTO) 0.9 % (0.0-6.0); HEMATOCRIT 27 % (33-45); HEMOGLOBIN 8.8 g/dL (11.5-14.8); LYMPHOCYTES % (AUTO) 9.9 % (20.0-44.0); MEAN CORPUSCULAR HGB CONC 33 g/dl (31.0-36.0); MEAN CORPUSCULAR VOLUME 72 fL (82-100); MONOCYTES # (AUTO) 1.1 /CMM (0.1-1.30); MONOCYTES % (AUTO) 10.9 % (2.0-12.0); NEUTROPHILS # (AUTO) 7.6 /CMM (1.8-8.9); NEUTROPHILS % (AUTO) 77.9 % (43.0-81.0); PLATELET COUNT (AUTO) 533 /CMM (150-450); RED BLOOD CELL COUNT(AUTO) 3.71 MIL/uL (4.0-5.2); WHITE BLOOD COUNT (AUTO) 9.7 K/uL (4.3-11.0)
[2019-06-02 07:01] LABS: CALCIUM, SERUM 8.6 mg/dL (8.5-10.1); CREATININE 0.6 mg/dL (0.6-1.3); MAGNESIUM 1.9 mg/dL (1.8-2.4); PHOSPHORUS 3.5 mg/dL (2.5-4.9); POTASSIUM 3.2 mmol/L (3.5-5.1)
--- NOTE | 2019-06-02 07:26 | NUR ---
MS RN OPENING NOTES RECEIVED PT LAYING IN BED WITH HOB SLIGHTLY ELEVATED. PT IS A/O X4, AFEBRILE. RESPIRATIONS ARE EVEN AND UNLABORED, NOT IN ANY ACUTE DISTRESS NOTED. PT C/O GENERALIZED PAIN 03/08, WILL MEDICATE ACCORDINGLY. DENIES ANY SOB, N/V AT THIS TIME. MIDLINE TO GINGER INTACT, NO INFILTRATION NOTED. DRESSING KEPT CLEAN AND DRY. SAFETY MEASURES ARE IN PLACE. INSTRUCTED PT TO USE CALL LIGHT WHEN ASSISTANCE IS NEEDED, CALL LIGHT IS LEFT WITHIN REACH. WILL MONITOR THROUGHOUT SHIFT FOR CONTINUITY OF CARE.
[2019-06-02 08:00] VITALS: BP 125/66
[2019-06-02] MEDS: PANTOPRAZOLE 40 MG TABLET.DR PO SCH (08:21)
[2019-06-02] MEDS: METHADONE HCL 10 MG TABLET PO SCH ×2 (08:22→16:02)
[2019-06-02] MEDS: ENSURE CLEAR 237 ML LIQUID (MIX BERRY) PO SCH ×3 (08:22→16:02)
[2019-06-02] MEDS: POTASSIUM CHLORIDE 20 MEQ TAB.PRT.SR PO SCH ×2 (09:41→10:34)
[2019-06-02] MEDS: IV NS 0.9% 1,000 ML IV PRN ×2 (09:41→21:12)
--- NOTE | 2019-06-02 10:30 | NUR ---
MS RN NOTES-- PT WAS SEEN AND EXAMINED BY JESSE CANAS W/ ORDERS FOR DISCHARGE TODAY BUT ONLY AFTER IF CM COORDINATES CHEMO SCHEDULE PRIOR TO BEING DISCHARGE.
[2019-06-02] MEDS ORDERED: NA P133E RC (10:35)
[2019-06-02] MEDS ORDERED: SOD62.5V IV (10:35)
[2019-06-02] MEDS ORDERED: OXYC5CAP18 PO (10:35)
[2019-06-02] MEDS ORDERED: METH10TA2 PO (10:35)
[2019-06-02] MEDS ORDERED: MAGN400O6 PO (10:35)
[2019-06-02] MEDS ORDERED: ZOLP5TAB2 PO (10:35)
[2019-06-02] MEDS ORDERED: PANT40TA2 PO (10:35)
[2019-06-02] MEDS ORDERED: ONDA4VIA23 IVP (10:35)
[2019-06-02] MEDS ORDERED: POLY17PO4 PO (10:35)
[2019-06-02] MEDS ORDERED: Lactose-Free Food PO (10:35)
[2019-06-02] MEDS ORDERED: POTA20TA83 PO (10:35)
[2019-06-02] MEDS ORDERED: ALPR0.255 PO (10:35)
[2019-06-02] MEDS ORDERED: MAG30ORA PO (10:35)
[2019-06-02] MEDS ORDERED: HYDR1DIS2 IV (10:35)
--- NOTE | 2019-06-02 12:47 | NUR ---
MS RN NOTES-- PT ABLE TO MAKE NEEDS KNOWN, NEEDS MET AND RENDERED. PT DOES NOT APPEAR TO BE IN ANY APPARENT DISTRESS. WILL CONTINUE TO MONITOR.
[2019-06-02] MEDS: RIVAROXABAN 10 MG TABLET PO SCH (13:23)
[2019-06-02] MEDS: SOD FERRIC GLUC 125 MG in IV NS 0.9% 100 ML IV SCH (13:53)
--- NOTE | 2019-06-02 15:42 | NUR ---
MS RN NOTES-- CALLED [facility] RE: DISCHARGE. THEY ARE WORKING ON GETTING ONCOLOGY AND CHEMO APPTS.
[2019-06-02 15:59] VITALS: BP 117/65
--- NOTE | 2019-06-02 17:00 | NUR ---
MS RN NOTES-- RECEIVED A CALL FROM ERICA STATING PT WILL BE P/U BY AMBULANCE AT 1800. PER ERICA, [facility] WILL MAKE ONCOLOGY APPT. NOTIFIED JESSE CANAS. PER DYLAN CANAS D/C. NOTIFIED ERICA TO SPEAK WITH JESSE CANAS.
[2019-06-02] MEDS: CEFTRIAXONE 1 G in IV D5W 50 ML IV SCH (17:35)
--- NOTE | 2019-06-02 19:37 | NUR ---
MS RN RECEIVE PT IN BED AWAKE A/O X 3, RESPIRATION EVEN AND UNLABORED, STABLE, NO S/S OF DISTRESS. SAFETY MEASURES IN PLACE. WILL CONT TO MTR
[2019-06-02] MEDS: oxyCODONE IR immediate release 5 MG PO PRN (19:53)
[2019-06-02 20:00] VITALS: BP 124/68
[2019-06-02] MEDS: VENLAFAXINE XR 37.5 MG CAP.SR.24H PO SCH (21:12)
[2019-06-02] MEDS: GABAPENTIN 400 MG CAPSULE PO SCH (21:12)
[2019-06-03] MEDS: HYDROMORPHONE 1 MG/1 ML DISP.SYRIN IV PRN ×6 (00:12→15:01)
[2019-06-03] MEDS: ONDANSETRON HCL/PF 4 MG/2 ML VIAL IVP PRN ×2 (00:12→06:15)
--- NOTE | 2019-06-03 06:18 | NUR ---
MS RN ASLEEP AND EASILY AWAKEN, RESPIRATION EVEN AND UNLABORED. PAIN WELL MONITORED. MEDICATED WITH PRN MED (DILAUDID) PER PT REQUEST WITH RELIEF. KEPT CLEAN AND DRY, COMFORTABLE. NEEDS ATTENDED AND ANTICIPATED. WILL ENDORSE TO THE NEXT SHIF
[2019-06-03 06:44] LABS: CALCIUM, SERUM 8.7 mg/dL (8.5-10.1); CREATININE 0.6 mg/dL (0.6-1.3)
--- NOTE | 2019-06-03 07:31 | NUR ---
RN MS OPENING NOTES Patient remains on room air, no sob noted, patient remains a/o x3 at this time. GINGER midline #18 NS @ 100 mL per hour. Patient states that pain is under control at this time. NO N/V. Bed at the lowest setting, call light within reach, side rails up x2.
[2019-06-03] MEDS: PANTOPRAZOLE 40 MG TABLET.DR PO SCH (07:43)
[2019-06-03] MEDS: ENSURE CLEAR 237 ML LIQUID (MIX BERRY) PO SCH ×2 (07:46→13:25)
[2019-06-03 08:00] VITALS: BP 109/69
[2019-06-03] MEDS: IV NS 0.9% 1,000 ML IV PRN (08:57)
[2019-06-03] MEDS: METHADONE HCL 10 MG TABLET PO SCH (10:04)
[2019-06-03] MEDS: RIVAROXABAN 10 MG TABLET PO SCH (13:23)
[2019-06-03] MEDS: SOD FERRIC GLUC 125 MG in IV NS 0.9% 100 ML IV SCH (14:00)
--- NOTE | 2019-06-03 16:33 | NUR ---
RN MS discharge notes Patient discharged at this time, patient remains with [facility] midline a this time. Patient signed all paper work signed and understood, patient has no further questions from her discharge orders. Patient's vital signs stable and denies pain at this time. Patient discharged to [facility]. Patient has all her belongings.
== END 2019-06-03 18:41 | DRG 530 ==
LOC: MED 19:56 → TELE 20:20 → MED 05-27 08:34
PROVIDERS: ADMIT Student in an Organized Health Care Education/Training Program; ATTEND Registered Nurse
DX: C53.9 Malignant neoplasm of cervix uteri, unspecified (principal); C79.51 Secondary malignant neoplasm of bone; C79.82 Secondary malignant neoplasm of genital organs; I82.409 Acute embolism and thrombosis of unspecified deep veins of unspecified lower extremity; E22.2 Syndrome of inappropriate secretion of antidiuretic hormone; E44.0 Moderate protein-calorie malnutrition; M84.48XA Pathological fracture, other site, initial encounter for fracture; D68.59 Other primary thrombophilia; F11.20 Opioid dependence, uncomplicated; Z90.710 Acquired absence of both cervix and uterus; Z79.899 Other long term (current) drug therapy; D47.3 Essential (hemorrhagic) thrombocythemia; N13.30 Unspecified hydronephrosis; G89.4 Chronic pain syndrome; D50.9 Iron deficiency anemia, unspecified; G89.3 Neoplasm related pain (acute) (chronic); N26.1 Atrophy of kidney (terminal); N39.0 Urinary tract infection, site not specified; B96.89 Other specified bacterial agents as the cause of diseases classified elsewhere; K21.9 Gastro-esophageal reflux disease without esophagitis; K22.4 Dyskinesia of esophagus
CPT/HCPCS: 36415; 36569; 71250-TC; 80048-TC; 81000-TC; 82533; 82728-TC; 83540-TC; 83735-TC; 83935-TC; 84100-TC; 84300-TC; 84443-TC; 85025-TC; 87081-TC; 87086-TC; 87186-TC; 97530-TC; C9113; G0378; J0696; J1170; J1650; J2270; J2405; J2916; J7030; J7060

== ENCOUNTER 2019-07-13 10:33 | Inpatient (IN) | payer OTHER ==
[~2019-07-13] VITALS: Ht 165.1 cm; Wt 49.4 kg
[~2019-07-13 10:33] MED LIST: ALPR0.255 PO; GABA-536 PO; HYDR1DIS2 IV; Lactose-Free Food PO; MAG30ORA PO; MAGN400O6 PO; METH10TA2 PO; METH5TAB2 PO; METO-295 PO; MULT-213 PO; NA P133E RC; NALO4SPR NS; ONDA4VIA23 IVP; ONDA8TAB6 PO; OXYC5CAP18 PO; PANT40TA2 PO; POLY17PO4 PO; POTA20TA83 PO; PROC10TA13 PO; RIVA10TA PO; SOD62.5V IV; VENL225T PO; ZOLP5TAB2 PO
[2019-07-13] MEDS ORDERED: ONDANSETRON HCL/PF 4 MG/2 ML VIAL IVP ONE (11:00)
[2019-07-13] MEDS ORDERED: MORPHINE SULFATE INJ 2 MG/ML DISP.SYRIN IV ONE (11:00)
[2019-07-13] MEDS ORDERED: IV NS 0.9% 1,000 ML BAG IV ONE (11:00)
[2019-07-13] MEDS ORDERED: ONDANSETRON HCL/PF 4 MG/2 ML VIAL ONE (11:04)
[2019-07-13 11:12] LABS: BASOPHILS # (AUTO) 0.2 /CMM (0.0-0.2); BASOPHILS % (AUTO) 1.3 % (0.0-2.0); EOSINOPHILS % (AUTO) 0.7 % (0.0-6.0); HEMATOCRIT 38 % (33-45); HEMOGLOBIN 11.8 g/dL (11.5-14.8); LYMPHOCYTES # (AUTO) 1.2 /CMM (0.8-4.8); LYMPHOCYTES % (AUTO) 6.8 % (20.0-44.0); MEAN CORPUSCULAR HGB CONC 31 g/dl (31.0-36.0); MEAN CORPUSCULAR VOLUME 73 fL (82-100); MONOCYTES # (AUTO) 1.1 /CMM (0.1-1.30); MONOCYTES % (AUTO) 6.4 % (2.0-12.0); NEUTROPHILS % (AUTO) 84.8 % (43.0-81.0); PLATELET COUNT (AUTO) 524 /CMM (150-450); RED BLOOD CELL COUNT(AUTO) 5.19 MIL/uL (4.0-5.2); WHITE BLOOD COUNT (AUTO) 17.7 K/uL (4.3-11.0)
[2019-07-13 11:17] LABS: CALCIUM, SERUM 9.9 mg/dL (8.5-10.1); CREATININE 0.7 mg/dL (0.6-1.3); POTASSIUM 3.6 mmol/L (3.5-5.1)
[2019-07-13 11:23] LABS: ALBUMIN 2.6 g/dL (3.4-5.0); BILIRUBIN,DIRECT 0.2 mg/dL (0.0-0.2); BILIRUBIN,TOTAL 0.5 mg/dL (0.2-1.0); TOTAL PROTEIN, SERUM 6.8 g/dL (6.4-8.2)
[2019-07-13] MEDS ORDERED: MORPHINE SULFATE INJ 4 MG/ML DISP.SYRIN ONE (11:30)
[2019-07-13 12:12] LABS: APPEARANCE,URINE Slightly Cloudy (CLEAR); BILIRUBIN,URINE SMALL (NEGATIVE); BLOOD, URINE Trace-intact Ery/uL (NEGATIVE); COLOR,URINE Dark (YELLOW); KETONES,URINE Trace (NEGATIVE); LEUKOCYTE ESTERASE ,URINE Small (NEGATIVE); NITRITE, URINE Negative (NEGATIVE); PROTEIN,URINE Negative (NEGATIVE); UGLUCOSE Negative (NEGATIVE)
[2019-07-13 12:26] LABS: BAND % (MANUAL) 2 % (0.0-5.0); LYMPHOCYTES % (MANUAL) 11 % (16-48); MONOCYTES % (MANUAL) 8 % (0-11.0); NEUTROPHILS % (MANUAL) 79 (42-76)
[2019-07-13 12:29] LABS: SQUAMOUS EPITHELIAL CELL,UR Moderate /HPF (None Seen); URINE AMORPHOUS PHOSPHATES Moderate /HPF (None Seen)
[2019-07-13 12:30] LABS: BACTERIA,URINE Few /HPF (None Seen); MUCUS,URINE Many /LPF (None Seen)
[2019-07-13] MEDS ORDERED: CEFTRIAXONE 1GM BAG (ER ONLY) 1 GM/50 ML PIGGYBACK IV ONE (13:30)
[2019-07-13] MEDS ORDERED: CRAN425C6 PO (13:39)
[2019-07-13] MEDS ORDERED: DEXA4TAB68 PO (13:39)
[2019-07-13] MEDS ORDERED: DOCU-141 PO (13:39)
[2019-07-13] MEDS ORDERED: BISA10SU11 RC (13:39)
[2019-07-13] MEDS ORDERED: FERR325T23 PO (13:39)
[2019-07-13] MEDS ORDERED: AMIN30LI2 PO (13:43)
[2019-07-13] MEDS ORDERED: TYL2T PO (13:47)
[2019-07-13] MEDS ORDERED: ONDA4TAB5 PO (13:47)
[2019-07-13] MEDS ORDERED: CEFTRIAXONE 1GM BAG (ER ONLY) 50 ML IV ONE (13:48)
[2019-07-13 16:00] VITALS: BP 115/81
[2019-07-13] MEDS: MORPHINE SULFATE INJ 4 MG/ML DISP.SYRIN IV PRN ×2 (16:25→23:36)
[2019-07-13] MEDS ORDERED: BISACODYL SUPP (10 MG) 10 MG/SUPP.RECT SUPP.RECT RC PRN (17:00)
[2019-07-13] MEDS ORDERED: METHADONE HCL 5 MG TABLET PO SCH (17:00)
[2019-07-13] MEDS ORDERED: MAGNESIUM HYDROXIDE 30 ML UDC PO PRN ×2 (17:00)
[2019-07-13] MEDS ORDERED: ACETAMINOPHEN 325 MG TABLET PO PRN (17:00)
[2019-07-13] MEDS ORDERED: PROCHLORPERAZINE MALEATE 10 MG TABLET PO PRN (17:00)
[2019-07-13] MEDS ORDERED: Z GUARD REMEDY 2 OZ OINT TP PRN (17:00)
[2019-07-13] MEDS ORDERED: POLYETHYLENE GLYCOL 3350 17 GM POWD.PACK PO PRN (17:00)
[2019-07-13] MEDS ORDERED: MAG HYDROX/AL HYDROX/SIMETH 30 ML UDC PO PRN (17:00)
[2019-07-13] MEDS ORDERED: NA PHOS,M-B/NA PHOS,DI-BA 1 EA ENEMA RC PRN (17:00)
[2019-07-13] MEDS: FERROUS SULFATE (325 MG) 325 MG/TAB TABLET PO SCH (17:30)
[2019-07-13] MEDS: DEXAMETHASONE 4 MG TABLET PO SCH (17:30)
[2019-07-13] MEDS: oxyCODONE IR immediate release 5 MG PO PRN (17:31)
[2019-07-13] MEDS: IV NS 0.9% 1,000 ML IV PRN (17:37)
[2019-07-13 20:00] VITALS: BP 127/60
[2019-07-13] MEDS: GABAPENTIN 400 MG CAPSULE PO SCH (22:03)
[2019-07-13] MEDS: DOCUSATE SODIUM 100 MG CAPSULE PO SCH (22:03)
[2019-07-13] MEDS: VENLAFAXINE XR 37.5 MG CAP.SR.24H PO SCH (22:03)
[2019-07-14] MEDS: IV NS 0.9% 1,000 ML IV PRN (06:00)
[2019-07-14 07:27] LABS: BASOPHILS % (AUTO) 0.2 % (0.0-2.0); HEMATOCRIT 35 % (33-45); HEMOGLOBIN 10.8 g/dL (11.5-14.8); LYMPHOCYTES # (AUTO) 1.2 /CMM (0.8-4.8); LYMPHOCYTES % (AUTO) 9.4 % (20.0-44.0); MEAN CORPUSCULAR HGB CONC 31 g/dl (31.0-36.0); MEAN CORPUSCULAR VOLUME 73 fL (82-100); MONOCYTES # (AUTO) 0.6 /CMM (0.1-1.30); MONOCYTES % (AUTO) 5.1 % (2.0-12.0); NEUTROPHILS # (AUTO) 10.6 /CMM (1.8-8.9); NEUTROPHILS % (AUTO) 85.3 % (43.0-81.0); PLATELET COUNT (AUTO) 460 /CMM (150-450); RED BLOOD CELL COUNT(AUTO) 4.81 MIL/uL (4.0-5.2); WHITE BLOOD COUNT (AUTO) 12.4 K/uL (4.3-11.0)
[2019-07-14 07:29] LABS: ALBUMIN 2.2 g/dL (3.4-5.0); BILIRUBIN,TOTAL 0.4 mg/dL (0.2-1.0); CALCIUM, SERUM 8.7 mg/dL (8.5-10.1); CREATININE 0.6 mg/dL (0.6-1.3); PHOSPHORUS 2.7 mg/dL (2.5-4.9); POTASSIUM 3.7 mmol/L (3.5-5.1)
[2019-07-14 08:00] VITALS: BP 136/61
[2019-07-14] MEDS: FERROUS SULFATE (325 MG) 325 MG/TAB TABLET PO SCH ×3 (08:43→17:53)
[2019-07-14] MEDS: PANTOPRAZOLE 40 MG TABLET.DR PO SCH (08:43)
[2019-07-14] MEDS: DEXAMETHASONE 4 MG TABLET PO SCH ×2 (08:43→17:52)
[2019-07-14] MEDS: MORPHINE SULFATE INJ 4 MG/ML DISP.SYRIN IV PRN ×2 (10:30→18:54)
[2019-07-14] MEDS: CEFTRIAXONE 1 G in IV D5W 50 ML IV SCH (13:11)
[2019-07-14] MEDS: oxyCODONE IR immediate release 5 MG PO PRN (14:00)
[2019-07-14] MEDS: RIVAROXABAN 10 MG TABLET PO SCH (17:53)
[2019-07-14] MEDS: METHADONE HCL 10 MG TABLET PO SCH (17:53)
[2019-07-14 20:00] VITALS: BP 119/53
[2019-07-14 20:30] VITALS: BP 119/53
[2019-07-14] MEDS: GABAPENTIN 400 MG CAPSULE PO SCH (22:03)
[2019-07-14] MEDS: DOCUSATE SODIUM 100 MG CAPSULE PO SCH (22:04)
[2019-07-14] MEDS: VENLAFAXINE XR 37.5 MG CAP.SR.24H PO SCH (22:04)
[2019-07-15] MEDS: MORPHINE SULFATE INJ 4 MG/ML DISP.SYRIN IV PRN ×3 (02:05→15:57)
[2019-07-15] MEDS: IV NS 0.9% 1,000 ML IV PRN ×2 (02:16→18:24)
[2019-07-15] MEDS: oxyCODONE IR immediate release 5 MG PO PRN ×3 (05:24→19:43)
[2019-07-15] MEDS: ONDANSETRON HCL/PF 4 MG/2 ML VIAL IVP PRN (05:55)
[2019-07-15 06:58] LABS: BASOPHILS % (AUTO) 0.4 % (0.0-2.0); EOSINOPHILS % (AUTO) 0.1 % (0.0-6.0); HEMATOCRIT 37 % (33-45); HEMOGLOBIN 11.7 g/dL (11.5-14.8); LYMPHOCYTES # (AUTO) 1.1 /CMM (0.8-4.8); LYMPHOCYTES % (AUTO) 8.6 % (20.0-44.0); MEAN CORPUSCULAR HGB CONC 32 g/dl (31.0-36.0); MEAN CORPUSCULAR VOLUME 73 fL (82-100); MONOCYTES # (AUTO) 0.8 /CMM (0.1-1.30); MONOCYTES % (AUTO) 6.2 % (2.0-12.0); NEUTROPHILS # (AUTO) 10.6 /CMM (1.8-8.9); NEUTROPHILS % (AUTO) 84.7 % (43.0-81.0); PLATELET COUNT (AUTO) 452 /CMM (150-450); RED BLOOD CELL COUNT(AUTO) 5.08 MIL/uL (4.0-5.2); WHITE BLOOD COUNT (AUTO) 12.6 K/uL (4.3-11.0)
[2019-07-15 07:39] LABS: CALCIUM, SERUM 8.8 mg/dL (8.5-10.1); CREATININE 0.6 mg/dL (0.6-1.3)
[2019-07-15 08:00] VITALS: BP 131/68
[2019-07-15] MEDS: DEXAMETHASONE 4 MG TABLET PO SCH ×2 (08:25→17:12)
[2019-07-15] MEDS: METHADONE HCL 10 MG TABLET PO SCH ×2 (08:25→17:13)
[2019-07-15] MEDS: PANTOPRAZOLE 40 MG TABLET.DR PO SCH (08:25)
[2019-07-15] MEDS: FERROUS SULFATE (325 MG) 325 MG/TAB TABLET PO SCH ×3 (08:25→17:12)
[2019-07-15] MEDS ORDERED: POTASSIUM CHLORIDE 20 MEQ POWDER PACKET PO SCH (10:00)
[2019-07-15] MEDS: MEGESTROL ACETATE SUSP 400 MG/10 ML UDC PO SCH ×2 (10:00→17:11)
[2019-07-15] MEDS ORDERED: POTASSIUM CHLORIDE 20 MEQ POWDER PACKET PO ONE (10:00)
[2019-07-15] MEDS: MUPIROCIN OINT 2% 22 GM TUBE SCH ×2 (10:07→21:33)
[2019-07-15] MEDS: CEFTRIAXONE 1 G in IV D5W 50 ML IV SCH (12:50)
[2019-07-15 16:00] VITALS: BP 139/71
[2019-07-15] MEDS: RIVAROXABAN 10 MG TABLET PO SCH (17:12)
[2019-07-15 20:00] VITALS: BP 125/58
[2019-07-15] MEDS: DOCUSATE SODIUM 100 MG CAPSULE PO SCH (21:33)
[2019-07-15] MEDS: VENLAFAXINE XR 37.5 MG CAP.SR.24H PO SCH (21:33)
[2019-07-15] MEDS: GABAPENTIN 400 MG CAPSULE PO SCH (21:34)
[2019-07-16] MEDS: MORPHINE SULFATE INJ 4 MG/ML DISP.SYRIN IV PRN ×5 (01:26→20:51)
[2019-07-16] MEDS: oxyCODONE IR immediate release 5 MG PO PRN (03:56)
[2019-07-16 06:08] LABS: BASOPHILS # (AUTO) 0.1 /CMM (0.0-0.2); BASOPHILS % (AUTO) 0.4 % (0.0-2.0); EOSINOPHILS % (AUTO) 0.1 % (0.0-6.0); HEMATOCRIT 36 % (33-45); HEMOGLOBIN 11.5 g/dL (11.5-14.8); LYMPHOCYTES # (AUTO) 1.4 /CMM (0.8-4.8); MEAN CORPUSCULAR HGB CONC 32 g/dl (31.0-36.0); MEAN CORPUSCULAR VOLUME 73 fL (82-100); MONOCYTES # (AUTO) 0.9 /CMM (0.1-1.30); MONOCYTES % (AUTO) 6.1 % (2.0-12.0); NEUTROPHILS # (AUTO) 11.9 /CMM (1.8-8.9); NEUTROPHILS % (AUTO) 83.4 % (43.0-81.0); PLATELET COUNT (AUTO) 453 /CMM (150-450); WHITE BLOOD COUNT (AUTO) 14.2 K/uL (4.3-11.0)
[2019-07-16 06:20] LABS: CALCIUM, SERUM 8.6 mg/dL (8.5-10.1); CREATININE 0.5 mg/dL (0.6-1.3); MAGNESIUM 1.9 mg/dL (1.8-2.4); PHOSPHORUS 2.6 mg/dL (2.5-4.9); POTASSIUM 3.2 mmol/L (3.5-5.1)
[2019-07-16] MEDS: PANTOPRAZOLE 40 MG TABLET.DR PO SCH (07:30)
[2019-07-16 08:00] VITALS: BP 134/82
[2019-07-16] MEDS ORDERED: POTASSIUM CHLORIDE 20 MEQ POWDER PACKET PO ONE (08:00)
[2019-07-16] MEDS: METHADONE HCL 10 MG TABLET PO SCH ×2 (08:54→16:14)
[2019-07-16] MEDS: MEGESTROL ACETATE SUSP 400 MG/10 ML UDC PO SCH ×2 (08:58→17:00)
[2019-07-16] MEDS: FERROUS SULFATE (325 MG) 325 MG/TAB TABLET PO SCH ×3 (08:58→18:00)
[2019-07-16] MEDS: DEXAMETHASONE 4 MG TABLET PO SCH ×2 (08:58→16:14)
[2019-07-16] MEDS: IV NS 0.9% 1,000 ML IV PRN (09:03)
[2019-07-16] MEDS: MUPIROCIN OINT 2% 22 GM TUBE SCH ×2 (09:09→20:55)
[2019-07-16] MEDS: CEFTRIAXONE 1 G in IV D5W 50 ML IV SCH (13:16)
[2019-07-16 16:00] VITALS: BP 126/64
[2019-07-16] MEDS: RIVAROXABAN 10 MG TABLET PO SCH (16:15)
[2019-07-16 20:24] VITALS: BP 116/63
[2019-07-16] MEDS: DOCUSATE SODIUM 100 MG CAPSULE PO SCH (21:39)
[2019-07-16] MEDS: GABAPENTIN 400 MG CAPSULE PO SCH (21:39)
[2019-07-16] MEDS: VENLAFAXINE XR 37.5 MG CAP.SR.24H PO SCH (21:39)
[2019-07-16 22:00] VITALS: BP 116/63
[2019-07-17] MEDS: IV NS 0.9% 1,000 ML IV PRN ×2 (00:27→16:48)
[2019-07-17] MEDS: MORPHINE SULFATE INJ 4 MG/ML DISP.SYRIN IV PRN ×4 (01:26→22:15)
[2019-07-17] MEDS: oxyCODONE IR immediate release 5 MG PO PRN ×3 (03:02→19:45)
[2019-07-17 06:44] LABS: BASOPHILS % (AUTO) 0.1 % (0.0-2.0); EOSINOPHILS % (AUTO) 0.2 % (0.0-6.0); HEMATOCRIT 35 % (33-45); HEMOGLOBIN 11.2 g/dL (11.5-14.8); LYMPHOCYTES # (AUTO) 1.8 /CMM (0.8-4.8); LYMPHOCYTES % (AUTO) 11.3 % (20.0-44.0); MEAN CORPUSCULAR HGB CONC 32 g/dl (31.0-36.0); MEAN CORPUSCULAR VOLUME 72 fL (82-100); MONOCYTES # (AUTO) 1.4 /CMM (0.1-1.30); MONOCYTES % (AUTO) 8.8 % (2.0-12.0); NEUTROPHILS # (AUTO) 12.4 /CMM (1.8-8.9); NEUTROPHILS % (AUTO) 79.6 % (43.0-81.0); PLATELET COUNT (AUTO) 471 /CMM (150-450); WHITE BLOOD COUNT (AUTO) 15.6 K/uL (4.3-11.0)
[2019-07-17 07:28] LABS: CALCIUM, SERUM 8.7 mg/dL (8.5-10.1); CREATININE 0.5 mg/dL (0.6-1.3); MAGNESIUM 1.8 mg/dL (1.8-2.4); PHOSPHORUS 2.2 mg/dL (2.5-4.9)
[2019-07-17 08:00] VITALS: BP 118/68
[2019-07-17] MEDS: FERROUS SULFATE (325 MG) 325 MG/TAB TABLET PO SCH ×3 (08:00→18:00)
[2019-07-17] MEDS ORDERED: POTASSIUM CHLORIDE 20 MEQ TAB.PRT.SR PO ONE (08:00)
[2019-07-17] MEDS ORDERED: NEUTRA PHOS 1 POWD.PACKET PO ONE (08:00)
[2019-07-17] MEDS: METHADONE HCL 10 MG TABLET PO SCH ×3 (08:48→16:34)
[2019-07-17] MEDS: DEXAMETHASONE 4 MG TABLET PO SCH ×2 (08:48→16:33)
[2019-07-17] MEDS: PANTOPRAZOLE 40 MG TABLET.DR PO SCH (08:49)
[2019-07-17] MEDS: MUPIROCIN OINT 2% 22 GM TUBE SCH ×2 (08:54→22:21)
[2019-07-17] MEDS: MEGESTROL ACETATE SUSP 400 MG/10 ML UDC PO SCH ×2 (09:00→16:42)
[2019-07-17] MEDS: ENSURE CLEAR 237 ML LIQUID (MIX BERRY) PO SCH ×2 (12:25→16:42)
[2019-07-17] MEDS: CEFTRIAXONE 1 G in IV D5W 50 ML IV SCH (13:00)
[2019-07-17 16:00] VITALS: BP 130/68
[2019-07-17] MEDS: RIVAROXABAN 10 MG TABLET PO SCH (16:33)
[2019-07-17 20:00] VITALS: BP 112/62
[2019-07-17 20:27] VITALS: BP 112/62
[2019-07-17] MEDS: GABAPENTIN 400 MG CAPSULE PO SCH (22:14)
[2019-07-17] MEDS: DOCUSATE SODIUM 100 MG CAPSULE PO SCH (22:14)
[2019-07-17] MEDS: VENLAFAXINE XR 37.5 MG CAP.SR.24H PO SCH (22:14)
[2019-07-18] MEDS: oxyCODONE IR immediate release 5 MG PO PRN ×3 (00:08→15:08)
[2019-07-18] MEDS: MORPHINE SULFATE INJ 4 MG/ML DISP.SYRIN IV PRN ×2 (02:17→06:30)
[2019-07-18] MEDS: IV NS 0.9% 1,000 ML IV PRN ×2 (06:26→22:01)
[2019-07-18 07:06] LABS: BASOPHILS % (AUTO) 0.2 % (0.0-2.0); HEMATOCRIT 35 % (33-45); HEMOGLOBIN 10.9 g/dL (11.5-14.8); LYMPHOCYTES # (AUTO) 1.4 /CMM (0.8-4.8); LYMPHOCYTES % (AUTO) 9.1 % (20.0-44.0); MEAN CORPUSCULAR HGB CONC 31 g/dl (31.0-36.0); MEAN CORPUSCULAR VOLUME 72 fL (82-100); MONOCYTES # (AUTO) 1.3 /CMM (0.1-1.30); MONOCYTES % (AUTO) 8.8 % (2.0-12.0); NEUTROPHILS # (AUTO) 12.3 /CMM (1.8-8.9); NEUTROPHILS % (AUTO) 81.9 % (43.0-81.0); PLATELET COUNT (AUTO) 464 /CMM (150-450); RED BLOOD CELL COUNT(AUTO) 4.81 MIL/uL (4.0-5.2); WHITE BLOOD COUNT (AUTO) 15.1 K/uL (4.3-11.0)
[2019-07-18 07:29] LABS: CALCIUM, SERUM 8.7 mg/dL (8.5-10.1); CREATININE 0.5 mg/dL (0.6-1.3); MAGNESIUM 1.9 mg/dL (1.8-2.4); PHOSPHORUS 2.6 mg/dL (2.5-4.9); POTASSIUM 2.9 mmol/L (3.5-5.1)
[2019-07-18 08:00] VITALS: BP 135/71
[2019-07-18] MEDS: MEGESTROL ACETATE SUSP 400 MG/10 ML UDC PO SCH ×2 (09:54→17:55)
[2019-07-18] MEDS: METHADONE HCL 10 MG TABLET PO SCH ×2 (09:55→17:55)
[2019-07-18] MEDS: DEXAMETHASONE 4 MG TABLET PO SCH ×2 (09:55→17:56)
[2019-07-18] MEDS: FERROUS SULFATE (325 MG) 325 MG/TAB TABLET PO SCH ×3 (09:56→17:55)
[2019-07-18] MEDS: PANTOPRAZOLE 40 MG TABLET.DR PO SCH (09:58)
[2019-07-18] MEDS: ENSURE CLEAR 237 ML LIQUID (MIX BERRY) PO SCH ×3 (10:08→17:00)
[2019-07-18] MEDS: POTASSIUM CHLORIDE 20 MEQ TAB.PRT.SR PO SCH ×3 (11:00→13:00)
[2019-07-18] MEDS: CEFTRIAXONE 1 G in IV D5W 50 ML IV SCH (14:56)
[2019-07-18] MEDS: Potassium Chloride 10 MEQ, LIDOCAINE HCL/PF 1% 1 ML in IV D5W 50 ML IV SCH ×4 (14:56→18:01)
[2019-07-18] MEDS: MUPIROCIN OINT 2% 22 GM TUBE SCH ×2 (15:02→22:02)
[2019-07-18 16:00] VITALS: BP 116/73
[2019-07-18] MEDS: RIVAROXABAN 10 MG TABLET PO SCH (17:58)
[2019-07-18 20:00] VITALS: BP 135/64
[2019-07-18] MEDS ORDERED: FENTANYL TD PATCH (12 MCG/HR) 12 MCG/HR PATCH.TD72 TD SCH (20:00)
[2019-07-18] MEDS: DOCUSATE SODIUM 100 MG CAPSULE PO SCH (22:01)
[2019-07-18] MEDS: VENLAFAXINE XR 37.5 MG CAP.SR.24H PO SCH (22:01)
[2019-07-18] MEDS: GABAPENTIN 400 MG CAPSULE PO SCH (22:01)
[2019-07-19] MEDS: oxyCODONE IR immediate release 5 MG PO PRN ×3 (05:08→18:41)
[2019-07-19 06:56] LABS: CALCIUM, SERUM 8.7 mg/dL (8.5-10.1); CREATININE 0.5 mg/dL (0.6-1.3); POTASSIUM 3.3 mmol/L (3.5-5.1)
[2019-07-19 08:00] VITALS: BP 148/86
[2019-07-19] MEDS: ENSURE CLEAR 237 ML LIQUID (MIX BERRY) PO SCH ×3 (08:00→16:44)
[2019-07-19] MEDS: PANTOPRAZOLE 40 MG TABLET.DR PO SCH (08:52)
[2019-07-19] MEDS: MEGESTROL ACETATE SUSP 400 MG/10 ML UDC PO SCH ×2 (08:52→16:30)
[2019-07-19] MEDS: FERROUS SULFATE (325 MG) 325 MG/TAB TABLET PO SCH ×3 (08:52→18:00)
[2019-07-19] MEDS: DEXAMETHASONE 4 MG TABLET PO SCH ×2 (08:52→16:30)
[2019-07-19] MEDS: MUPIROCIN OINT 2% 22 GM TUBE SCH ×2 (08:54→21:21)
[2019-07-19] MEDS ORDERED: POTASSIUM CHLORIDE 20 MEQ TAB.PRT.SR PO SCH (10:00)
[2019-07-19] MEDS: IV NS 0.9% 1,000 ML IV PRN (13:21)
[2019-07-19] MEDS: CEFTRIAXONE 1 G in IV D5W 50 ML IV SCH (13:21)
[2019-07-19] MEDS ORDERED: FENTANYL TD PATCH (12 MCG/HR) 12 MCG/HR PATCH.TD72 TD SCH ×2 (14:30→16:00)
[2019-07-19 16:00] VITALS: BP 135/80
[2019-07-19] MEDS: RIVAROXABAN 10 MG TABLET PO SCH (16:30)
[2019-07-19 20:00] VITALS: BP 160/76
[2019-07-19] MEDS: VENLAFAXINE XR 37.5 MG CAP.SR.24H PO SCH (21:19)
[2019-07-19] MEDS: GABAPENTIN 400 MG CAPSULE PO SCH (21:19)
[2019-07-19] MEDS: DOCUSATE SODIUM 100 MG CAPSULE PO SCH (21:20)
[2019-07-20] MEDS: oxyCODONE IR immediate release 5 MG PO PRN ×2 (04:46→18:28)
[2019-07-20] MEDS: IV NS 0.9% 1,000 ML IV PRN ×2 (04:50→18:43)
[2019-07-20 06:42] LABS: BASOPHILS % (AUTO) 0.1 % (0.0-2.0); HEMATOCRIT 38 % (33-45); HEMOGLOBIN 11.7 g/dL (11.5-14.8); LYMPHOCYTES % (AUTO) 7.4 % (20.0-44.0); MEAN CORPUSCULAR HGB CONC 31 g/dl (31.0-36.0); MEAN CORPUSCULAR VOLUME 73 fL (82-100); MONOCYTES # (AUTO) 0.7 /CMM (0.1-1.30); NEUTROPHILS # (AUTO) 11.5 /CMM (1.8-8.9); NEUTROPHILS % (AUTO) 87.5 % (43.0-81.0); PLATELET COUNT (AUTO) 489 /CMM (150-450); RED BLOOD CELL COUNT(AUTO) 5.19 MIL/uL (4.0-5.2); WHITE BLOOD COUNT (AUTO) 13.2 K/uL (4.3-11.0)
[2019-07-20 07:31] LABS: CREATININE 0.5 mg/dL (0.6-1.3); PHOSPHORUS 2.6 mg/dL (2.5-4.9); POTASSIUM 3.6 mmol/L (3.5-5.1)
[2019-07-20 08:00] VITALS: BP 144/72
[2019-07-20] MEDS: ENSURE CLEAR 237 ML LIQUID (MIX BERRY) PO SCH ×3 (08:00→17:00)
[2019-07-20] MEDS: FERROUS SULFATE (325 MG) 325 MG/TAB TABLET PO SCH ×3 (08:00→18:04)
[2019-07-20 08:39] LABS: BAND % (MANUAL) 2 % (0.0-5.0); EOSINOPHILS % (MANUAL) 1 % (0-4); LYMPHOCYTES % (MANUAL) 7 % (16-48); MONOCYTES % (MANUAL) 3 % (0-11.0); NEUTROPHILS % (MANUAL) 87 (42-76)
[2019-07-20] MEDS: MUPIROCIN OINT 2% 22 GM TUBE SCH ×2 (09:00→20:47)
[2019-07-20] MEDS: DEXAMETHASONE 4 MG TABLET PO SCH ×2 (09:14→18:04)
[2019-07-20] MEDS: PANTOPRAZOLE 40 MG TABLET.DR PO SCH (09:14)
[2019-07-20] MEDS: MEGESTROL ACETATE SUSP 400 MG/10 ML UDC PO SCH ×2 (10:26→18:04)
[2019-07-20] MEDS: CEFTRIAXONE 1 G in IV D5W 50 ML IV SCH (13:40)
[2019-07-20 16:00] VITALS: BP 144/90
[2019-07-20] MEDS: DRONABINOL (2.5 MG) 2.5 MG CAPSULE PO SCH (18:04)
[2019-07-20] MEDS: RIVAROXABAN 10 MG TABLET PO SCH (18:21)
[2019-07-20 20:00] VITALS: BP 139/67
[2019-07-20 20:12] VITALS: BP 139/67
[2019-07-20] MEDS: DOCUSATE SODIUM 100 MG CAPSULE PO SCH (21:04)
[2019-07-20] MEDS: GABAPENTIN 400 MG CAPSULE PO SCH (21:04)
[2019-07-20] MEDS: VENLAFAXINE XR 37.5 MG CAP.SR.24H PO SCH (21:04)
[2019-07-20] MEDS: ONDANSETRON HCL/PF 4 MG/2 ML VIAL IVP PRN (22:17)
[2019-07-21 07:16] LABS: BASOPHILS % (AUTO) 0.1 % (0.0-2.0); EOSINOPHILS % (AUTO) 0.1 % (0.0-6.0); HEMATOCRIT 41 % (33-45); HEMOGLOBIN 12.8 g/dL (11.5-14.8); LYMPHOCYTES # (AUTO) 0.6 /CMM (0.8-4.8); LYMPHOCYTES % (AUTO) 4.3 % (20.0-44.0); MEAN CORPUSCULAR HGB CONC 32 g/dl (31.0-36.0); MEAN CORPUSCULAR VOLUME 73 fL (82-100); MONOCYTES # (AUTO) 0.5 /CMM (0.1-1.30); MONOCYTES % (AUTO) 3.6 % (2.0-12.0); NEUTROPHILS # (AUTO) 13.4 /CMM (1.8-8.9); NEUTROPHILS % (AUTO) 91.9 % (43.0-81.0); PLATELET COUNT (AUTO) 526 /CMM (150-450); RED BLOOD CELL COUNT(AUTO) 5.58 MIL/uL (4.0-5.2); WHITE BLOOD COUNT (AUTO) 14.6 K/uL (4.3-11.0)
[2019-07-21] MEDS: PANTOPRAZOLE 40 MG TABLET.DR PO SCH (07:30)
[2019-07-21 07:48] LABS: CALCIUM, SERUM 9.1 mg/dL (8.5-10.1); CREATININE 0.6 mg/dL (0.6-1.3); PHOSPHORUS 2.6 mg/dL (2.5-4.9)
[2019-07-21 08:00] VITALS: BP 140/75
[2019-07-21] MEDS: ENSURE CLEAR 237 ML LIQUID (MIX BERRY) PO SCH ×3 (08:00→16:16)
[2019-07-21] MEDS: FERROUS SULFATE (325 MG) 325 MG/TAB TABLET PO SCH ×3 (08:00→18:00)
[2019-07-21] MEDS: MEGESTROL ACETATE SUSP 400 MG/10 ML UDC PO SCH ×2 (09:00→16:17)
[2019-07-21] MEDS: MUPIROCIN OINT 2% 22 GM TUBE SCH ×2 (09:00→21:52)
[2019-07-21] MEDS: DEXAMETHASONE 4 MG TABLET PO SCH ×2 (09:00→16:16)
[2019-07-21] MEDS: DRONABINOL (2.5 MG) 2.5 MG CAPSULE PO SCH ×2 (09:51→16:16)
[2019-07-21] MEDS ORDERED: POTASSIUM CHLORIDE 20 MEQ POWDER PACKET PO SCH (11:00)
[2019-07-21] MEDS: POTASSIUM CL. PREMIX PERIPHER. 50 ML IV SCH ×6 (12:00→20:01)
[2019-07-21] MEDS: IV NS 0.9% 1,000 ML IV PRN (12:01)
[2019-07-21] MEDS: CEFTRIAXONE 1 G in IV D5W 50 ML IV SCH (13:11)
[2019-07-21] MEDS: ONDANSETRON HCL/PF 4 MG/2 ML VIAL IVP PRN ×2 (13:26→21:50)
[2019-07-21] MEDS: HYDROMORPHONE 1 MG/1 ML DISP.SYRIN IV PRN ×2 (13:27→22:07)
[2019-07-21 16:00] VITALS: BP 148/60
[2019-07-21] MEDS: RIVAROXABAN 10 MG TABLET PO SCH (16:17)
[2019-07-21] MEDS: FENTANYL TD PATCH (25 MCG/HR) 25 MCG/HR PATCH.TD72 TD SCH (18:57)
[2019-07-21 20:00] VITALS: BP 135/53
[2019-07-21] MEDS: DOCUSATE SODIUM 100 MG CAPSULE PO SCH (21:51)
[2019-07-21] MEDS: GABAPENTIN 400 MG CAPSULE PO SCH (21:51)
[2019-07-21] MEDS: VENLAFAXINE XR 37.5 MG CAP.SR.24H PO SCH (21:51)
[2019-07-22] MEDS: IV NS 0.9% 1,000 ML IV PRN ×2 (03:41→18:59)
[2019-07-22] MEDS: HYDROMORPHONE 1 MG/1 ML DISP.SYRIN IV PRN ×5 (04:33→19:28)
[2019-07-22 08:00] VITALS: BP 152/63
[2019-07-22] MEDS: FERROUS SULFATE (325 MG) 325 MG/TAB TABLET PO SCH ×3 (08:00→17:24)
[2019-07-22] MEDS: ENSURE CLEAR 237 ML LIQUID (MIX BERRY) PO SCH ×3 (08:00→17:00)
[2019-07-22] MEDS: CEFTRIAXONE 1 G in IV D5W 50 ML IV SCH (13:43)
[2019-07-22] MEDS: PANTOPRAZOLE 40 MG TABLET.DR PO SCH (14:03)
[2019-07-22] MEDS: MEGESTROL ACETATE SUSP 400 MG/10 ML UDC PO SCH ×2 (14:03→17:00)
[2019-07-22] MEDS: MUPIROCIN OINT 2% 22 GM TUBE SCH ×2 (14:03→21:24)
[2019-07-22] MEDS: DEXAMETHASONE 4 MG TABLET PO SCH ×2 (14:03→17:00)
[2019-07-22] MEDS: DRONABINOL (2.5 MG) 2.5 MG CAPSULE PO SCH ×2 (14:03→17:00)
[2019-07-22 16:00] VITALS: BP 144/99
[2019-07-22] MEDS: RIVAROXABAN 10 MG TABLET PO SCH (17:00)
[2019-07-22 20:00] VITALS: BP 136/81
[2019-07-22 20:18] VITALS: BP 136/81
[2019-07-22] MEDS: GABAPENTIN 400 MG CAPSULE PO SCH (23:21)
[2019-07-22] MEDS: DOCUSATE SODIUM 100 MG CAPSULE PO SCH (23:21)
[2019-07-22] MEDS: VENLAFAXINE XR 37.5 MG CAP.SR.24H PO SCH (23:22)
[2019-07-23] MEDS: HYDROMORPHONE 1 MG/1 ML DISP.SYRIN IV PRN ×9 (01:13→20:51)
[2019-07-23] MEDS: ONDANSETRON HCL/PF 4 MG/2 ML VIAL IVP PRN (04:20)
[2019-07-23] MEDS: IV NS 0.9% 1,000 ML IV PRN ×2 (07:04→21:06)
[2019-07-23] MEDS: PANTOPRAZOLE 40 MG TABLET.DR PO SCH ×2 (07:30→08:59)
[2019-07-23 08:00] VITALS: BP 133/65
[2019-07-23] MEDS: FERROUS SULFATE (325 MG) 325 MG/TAB TABLET PO SCH ×4 (08:00→18:00)
[2019-07-23 08:29] VITALS: BP 133/65
[2019-07-23] MEDS: ENSURE CLEAR 237 ML LIQUID (MIX BERRY) PO SCH ×3 (08:59→17:00)
[2019-07-23] MEDS: MEGESTROL ACETATE SUSP 400 MG/10 ML UDC PO SCH ×3 (08:59→17:00)
[2019-07-23] MEDS: DEXAMETHASONE 4 MG TABLET PO SCH ×3 (08:59→17:00)
[2019-07-23] MEDS: DRONABINOL (2.5 MG) 2.5 MG CAPSULE PO SCH ×2 (08:59→17:00)
[2019-07-23] MEDS: MUPIROCIN OINT 2% 22 GM TUBE SCH ×2 (09:00→21:21)
[2019-07-23 16:14] VITALS: BP 133/65
[2019-07-23] MEDS: RIVAROXABAN 10 MG TABLET PO SCH (17:00)
[2019-07-23 20:00] VITALS: BP 126/71
[2019-07-23] MEDS: GABAPENTIN 400 MG CAPSULE PO SCH (21:21)
[2019-07-23] MEDS: DOCUSATE SODIUM 100 MG CAPSULE PO SCH (21:21)
[2019-07-23] MEDS: VENLAFAXINE XR 37.5 MG CAP.SR.24H PO SCH (21:21)
[2019-07-24] VITALS: BP 142/75
[2019-07-24] MEDS: HYDROMORPHONE 1 MG/1 ML DISP.SYRIN IV PRN ×10 (00:01→22:14)
[2019-07-24] MEDS: PANTOPRAZOLE 40 MG TABLET.DR PO SCH (07:30)
[2019-07-24 08:00] VITALS: BP 162/64
[2019-07-24] MEDS: ENSURE CLEAR 237 ML LIQUID (MIX BERRY) PO SCH ×3 (08:00→17:00)
[2019-07-24] MEDS: FERROUS SULFATE (325 MG) 325 MG/TAB TABLET PO SCH ×3 (08:00→17:13)
[2019-07-24 08:11] VITALS: BP 162/64
[2019-07-24] MEDS: MEGESTROL ACETATE SUSP 400 MG/10 ML UDC PO SCH ×2 (09:00→17:00)
[2019-07-24] MEDS: DRONABINOL (2.5 MG) 2.5 MG CAPSULE PO SCH ×3 (09:00→17:17)
[2019-07-24] MEDS: MUPIROCIN OINT 2% 22 GM TUBE SCH ×2 (09:00→22:10)
[2019-07-24] MEDS: DEXAMETHASONE 4 MG TABLET PO SCH ×2 (09:00→17:00)
[2019-07-24] MEDS: ONDANSETRON HCL/PF 4 MG/2 ML VIAL IVP PRN (10:10)
[2019-07-24] MEDS: RIVAROXABAN 10 MG TABLET PO SCH (17:00)
[2019-07-24] MEDS: FENTANYL TD PATCH (25 MCG/HR) 25 MCG/HR PATCH.TD72 TD SCH (17:53)
[2019-07-24 20:12] VITALS: BP 138/52
[2019-07-24] MEDS: VENLAFAXINE XR 37.5 MG CAP.SR.24H PO SCH (22:00)
[2019-07-24] MEDS: GABAPENTIN 400 MG CAPSULE PO SCH (22:00)
[2019-07-24] MEDS: DOCUSATE SODIUM 100 MG CAPSULE PO SCH (22:00)
[2019-07-25] MEDS: HYDROMORPHONE 1 MG/1 ML DISP.SYRIN IV PRN ×3 (00:27→03:58)
[2019-07-25] MEDS: ONDANSETRON HCL/PF 4 MG/2 ML VIAL IVP PRN ×2 (00:28→09:38)
[2019-07-25] MEDS: IV NS 0.9% 1,000 ML IV PRN (01:51)
[2019-07-25] MEDS: HYDROMORPHONE INJ 2 MG/ML DISP.SYRIN IV PRN ×3 (06:45→11:31)
[2019-07-25] MEDS: PANTOPRAZOLE 40 MG TABLET.DR PO SCH (07:30)
[2019-07-25 08:00] VITALS: BP 151/87
[2019-07-25] MEDS: FERROUS SULFATE (325 MG) 325 MG/TAB TABLET PO SCH (08:00)
[2019-07-25] MEDS: ENSURE CLEAR 237 ML LIQUID (MIX BERRY) PO SCH (08:00)
[2019-07-25] MEDS: DEXAMETHASONE 4 MG TABLET PO SCH (08:13)
[2019-07-25] MEDS: MEGESTROL ACETATE SUSP 400 MG/10 ML UDC PO SCH (08:28)
[2019-07-25] MEDS: DRONABINOL (2.5 MG) 2.5 MG CAPSULE PO SCH (09:38)
[2019-07-25] MEDS: MUPIROCIN OINT 2% 22 GM TUBE SCH (09:42)
[2019-07-25 11:31] VITALS: BP 132/61
== END 2019-07-25 12:00 | disposition hospice, inpatient (51) | DRG 463 ==
LOC: ER 10:39 → MED 15:26
PROVIDERS: ADMIT Hospitalist; ATTEND Hospitalist
DX: N39.0 Urinary tract infection, site not specified (principal); E43 Unspecified severe protein-calorie malnutrition; C79.9 Secondary malignant neoplasm of unspecified site; D68.59 Other primary thrombophilia; F33.2 Major depressive disorder, recurrent severe without psychotic features; E83.39 Other disorders of phosphorus metabolism; C53.9 Malignant neoplasm of cervix uteri, unspecified; E87.1 Hypo-osmolality and hyponatremia; G89.3 Neoplasm related pain (acute) (chronic); K59.03 Drug induced constipation; T40.605A Adverse effect of unspecified narcotics, initial encounter; Y92.129 Unspecified place in nursing home as the place of occurrence of the external cause; Z86.718 Personal history of other venous thrombosis and embolism; Z79.01 Long term (current) use of anticoagulants; Z68.1 Body mass index [BMI] 19.9 or less, adult; Z22.322 Carrier or suspected carrier of Methicillin resistant Staphylococcus aureus; G89.4 Chronic pain syndrome; R62.7 Adult failure to thrive; Z66 Do not resuscitate; E87.6 Hypokalemia; Z79.891 Long term (current) use of opiate analgesic; D47.3 Essential (hemorrhagic) thrombocythemia; Z87.311 Personal history of (healed) other pathological fracture; D72.829 Elevated white blood cell count, unspecified
CPT/HCPCS: 36415; 80048-TC; 80053-TC; 80061-TC; 80076-TC; 81000-TC; 83690-TC; 83735-TC; 84100-TC; 84484-TC; 85025-TC; 87081-TC; 87086-TC; 92611-TC; 97110-TC; 97112-TC; 97530-TC; G0378; J0696; J1170; J2270; J2405; J3480; J3490; J7030; J7042; J7060; J8540; Q0164; Q0167